=== PATIENT | male | born 1960 | race Caucasian/White ===

== ENCOUNTER 2017-05-06 11:50 | Day surgery (SDC) | payer BC ==
[~2017-05-06 11:50] MED LIST: (None)20 M1 PO; ACET325 PO; ACET500; ACET500 PO; ACETADOTE HHN; ACETYLCYST200 MG/1 M INH; ACYC400; ACYC400 PO; ACYC5TO15G PO; ALBIPROI INH; ALBU.083IS; ALBU3IS; ALBU90I; ALBU90I INH; ALBU90OI; ALEN10 PO; ALEN70 PO; ALLERCLEAR10 MG; ALPR.5 PO; AMBISOME INH; AMYLIPPRO; AMYLIPPRO PO; ASPART; ASPI81EC PO; ATOR10 PO; ATOVAQUONE750 MG/5 M; AZIT100SU; AZIT250 PO; AZIT500; Bactrim 400-801 EACH PO; CALACE667G PO; CALCIT950; CAYSTON75 MG/1 ML; CAYSTON75 MG/1 ML IH; CEFTAZIDIME; CEFTR1PB INH; CEPH500 PO; CHOL10002; CLOT10 SUSW; COLISTIMETHATE150 MG INH; CREON DR 24,001 EACH; CREON DR 24,001 EACH PO; CREON PO; CYAN1000 PO; CYAN500 PO; Citrate Of Mag300 ML PO; Coq-10100 MG; DEXL60CA3; DEXL60CA3 PO; DORN1IH; Duoneb 2.5-0.5 M3 ML IH; ERYT250 PO; Ester-C 500 MG1 EACH; Ester-C 500 MG1 EACH PO; FERR325 PO; FISH1000; FISH1000 PO; FLUSAL2505; FLUSAL2505 IH; FLUT.05NI; FORTAZ IV; FURO20 PO; GUAI600T33 PO; HYDACE5 PO; HYPERTONIC SALINE; Humalog100 UNIT/1; INS70/30I SC; INS70/30PN SC; INSDET100 SQ; INSLI100I; INSLI100I SC; INSN100I; INSUASPI; INSUASPI SC; IRON325 MG; LEVEMIR FL100 UNIT/1; LEVITRA; LEVO750 PO; LISI5 PO; LORA.5; Levitra20 MG PO; MAGOXI400 PO; MAXIPIME; MEROPENEM1000 MG IV; MIRT30 PO; MOMENI; MONT10T; MONT10T PO; MULVITA; MYCO250; MYCO250 PO; Mepron750 MG/5 M PO; Mucinex1200 MG PO; Myfortic360 MG; NASONEX; NEUPOGEN300 MCG/0. IJ; NOVALOG IJ; NOXAFIL100 MG; NOXAFIL100 MG PO; Norco 5-325 Ta1 EACH PO; OMEP20ER; OMEP20ER PO; OMEP40CA12 PO; PARO20; PARO20 PO; PAROEX473 ML SS; POTCHL10ER PO; PRAV20; PRAV20 PO; PRED10 PO; PRED20 PO; PRED5; PRED5 PO; PROGRAF; PROGRAF PO; Prednisone20 MG; Prinivil10 MG PO; QUET25 PO; RAPAMUNE PO; SALMOI6.5; SERAVENT; SULTRIDS; SULTRIDS PO; SULTRISS PO; TACR1 PO; TACROLIMUS5 MG PO; TADA10TA; TOBR.3OPSO INH; TOBRAMYCIN; TOCO400; TOCO400 PO; TRAZ50; TRAZ50 PO; UBID10; UBID100 PO; URSO300 PO; VALGANCICLOVIR; VALGANCICLOVIR450 MG PO; VANC125 INH; VANC250 PO; VANCOCIN INH; VANCOMYCIN 1000 MG; Valcyte450 MG PO; Ventolin5 MG/1 ML IH; [UNRECOGNIZED DRUG - OTHER]; [UNRECOGNIZED DRUG - OTHER]; [UNRECOGNIZED DRUG - OTHER]; [UNRECOGNIZED DRUG - OTHER]; [UNRECOGNIZED DRUG - OTHER] IV; [UNRECOGNIZED DRUG - OTHER] PO
[2018-01-25] MEDS ORDERED: ASCO500 PO (09:29)
== END 2017-05-06 16:47 | disposition home or self-care (01) ==
LOC: ATC 11:50
DX: T82.898A Other specified complication of vascular prosthetic devices, implants and grafts, initial encounter (principal); E10.40 Type 1 diabetes mellitus with diabetic neuropathy, unspecified
CPT/HCPCS: 36593; J2997

== ENCOUNTER 2017-06-09 06:17 | Day surgery (SDC) | payer BC ==
[~2017-06-09] VITALS: Ht 177.8 cm; Wt 70.3 kg
[2017-06-09] MEDS ORDERED: TACR1 (07:00)
[2017-06-09] MEDS ORDERED: ASPI81CH (07:01)
[2017-06-09] MEDS ORDERED: SIRO1 (07:04)
[2017-06-09] MEDS ORDERED: Novolin R100 UNIT/M (07:05)
[2017-06-09] MEDS ORDERED: Flonase 0.05% N16 GM (07:09)
[2018-01-25] MEDS ORDERED: ASCO500 PO (09:29)
== END 2017-06-09 12:46 | disposition home or self-care (01) ==
LOC: ORSCSDS 06:17
PROVIDERS: Otolaryngology
PROC: 8E09XBZ Computer Assisted Procedure of Head and Neck Region (ICD-10-PCS; principal; 2017-06-09 07:30)
PROC: 09BT4ZZ Excision of Left Frontal Sinus, Percutaneous Endoscopic Approach (ICD-10-PCS; principal; 2017-06-09 07:30)
PROC: 09BS4ZZ Excision of Right Frontal Sinus, Percutaneous Endoscopic Approach (ICD-10-PCS; principal; 2017-06-09 07:30)
DX: J32.8 Other chronic sinusitis (principal); E84.9 Cystic fibrosis, unspecified; E11.9 Type 2 diabetes mellitus without complications; N18.9 Chronic kidney disease, unspecified; Z79.4 Long term (current) use of insulin; Z79.82 Long term (current) use of aspirin; Z79.899 Other long term (current) drug therapy
CPT/HCPCS: 82947; 87070; 87077; 87102; 87186; 87205; C2625; J0696; J1100; J1580; J1720; J2250; J2405; J2710; J3010; J3301; J7030

== ENCOUNTER → 2017-06-14 | Outpatient (CLI) | payer BC ==
[~2017-06-14] MED LIST changes: +ASCO500 PO; +ASPI81CH; +Flonase 0.05% N16 GM; +Novolin R100 UNIT/M; +SIRO1; +TACR1
== END | disposition home or self-care (01) ==
LOC: LAB SHORT 13:10 → PLD 13:10
DX: L73.9 Follicular disorder, unspecified (principal); L57.8 Other skin changes due to chronic exposure to nonionizing radiation; R23.4 Changes in skin texture; L83 Acanthosis nigricans; L90.5 Scar conditions and fibrosis of skin
CPT/HCPCS: 88305; 88312

== ENCOUNTER → 2017-09-14 | Outpatient (CLI) | payer BC ==
[~2017-09-14] MED LIST changes: -ASCO500 PO
== END | disposition home or self-care (01) ==
LOC: PLD 07:57 → LAB SHORT 07:57
DX: L57.0 Actinic keratosis (principal)
CPT/HCPCS: 88305

== ENCOUNTER → 2017-11-16 | Outpatient (CLI) | payer BC | LOC: LAB SHORT 11:07 → PLD 11:07 | DX: D04.0 Carcinoma in situ of skin of lip (principal); L57.0 Actinic keratosis | CPT/HCPCS: 88305 ==

== ENCOUNTER → 2018-05-08 | Outpatient (CLI) | payer BC ==
[~2018-05-08] MED LIST changes: +ASCO500 PO; +Aspirin EC81 MG PO; +CALCIUM 500 +1 EAC3 PO; +CLARITIN10 MG PO; +Cartridge Stam1 EACH SC; +Coenzyme Q10100 M1 PO; +Humalog Mi100 UNIT/4 SC; +LOSA25 PO; +NEUPOGEN300 MCG/0.; +Omega 3 Fish O1 EACH PO; +PROM25 PO; -SIRO1; +SIRO1 PO; +VITAMIN D35000 UNIT PO; +ZENPEP DR 20,01 EACH PO
== END ==
LOC: PLD 14:47 → LAB SHORT 14:47
DX: D48.5 Neoplasm of uncertain behavior of skin (principal)
CPT/HCPCS: 88305

== ENCOUNTER 2018-05-09 08:39 | Day surgery (SDC) | payer BC ==
[~2018-05-09] VITALS: Ht 180.3 cm; Wt 70.5 kg
[~2018-05-09 08:39] MED LIST changes: -NEUPOGEN300 MCG/0.
[2018-05-09] MEDS ORDERED: NEUPOGEN300 MCG/0. (09:33)
[2018-05-09] MEDS ORDERED: CREON DR 24,001 EACH (09:36)
--- NOTE | 2018-05-09 12:44 | NUR ---
05/09/18 1244 Ann Humphrey PATIENT AWAKES WITH VERBAL STIMULI. ADMITS TO PAIN /10 AND POINTS TO HIS MID NOSE AREA. VITAL SIGNS ARE STABLE. O2 SATS 96% ON ROOM AIR. HE TAKES OFF THE MUSTACHE DRESSING AND STATES HE DOESN'T WANT THAT ON HIS NOSE. THERE IS A SMALL AMOUNT OF BLEEDING FROM HIS LEFT NOSTRIL THAT I DAB UP AND NO FURTHER PROBLEMS. PATIENT FALLS ASLEEP WHEN NOT BEING SPOKEN TO. WILL ALLOW PATIENT MORE TIME TO WAKE UP BEFORE BRINGING HIS BACK
--- NOTE | 2018-05-09 12:52 | NUR ---
05/09/18 1251 Rupinder Love TOOK REPORT FROM [facility].DFT PT RESTING IN BED, VSS, AT BEDSIDE. PT TOLERATING SMALL SIPS OF WATER. DENIES NAUSEA AND PAIN MEDS FOR 4/10 PAIN. WILL CONT TO MONITOR.
== END 2018-05-09 13:26 | disposition home or self-care (01) ==
LOC: ORSCSDS 08:39
PROVIDERS: Otolaryngology
PROC: 099R8ZZ Drainage of Left Maxillary Sinus, Via Natural or Artificial Opening Endoscopic (ICD-10-PCS; principal; 2018-05-09 09:45)
PROC: 09DR4ZZ Extraction of Left Maxillary Sinus, Percutaneous Endoscopic Approach (ICD-10-PCS; principal; 2018-05-09 09:45)
PROC: 8E09XBZ Computer Assisted Procedure of Head and Neck Region (ICD-10-PCS; principal; 2018-05-09 09:45)
DX: J32.1 Chronic frontal sinusitis (principal); E84.9 Cystic fibrosis, unspecified; E11.22 Type 2 diabetes mellitus with diabetic chronic kidney disease; I12.9 Hypertensive chronic kidney disease with stage 1 through stage 4 chronic kidney disease, or unspecified chronic kidney disease; N18.4 Chronic kidney disease, stage 4 (severe); Z79.4 Long term (current) use of insulin; Z79.899 Other long term (current) drug therapy
CPT/HCPCS: 82947; 87070; 87077; 87186; 87205; C2625; J1100; J1580; J1720; J2250; J2405; J3010; J3301; J7120

== ENCOUNTER → 2018-09-16 | Outpatient (CLI) | payer BC ==
[~2018-09-16] MED LIST changes: +CRESEMBA186 MG; +NEUPOGEN300 MCG/0.
== END ==
LOC: LAB SRC 10:00 → LAB SHORT 10:00 → LAB FUT 09-18 07:45
DX: T86.819 Unspecified complication of lung transplant (principal); E84.9 Cystic fibrosis, unspecified
CPT/HCPCS: 87070; 87077; 87147; 87186; 87205

== ENCOUNTER 2019-01-23 07:21 | Day surgery (SDC) | payer BC ==
[~2019-01-23] VITALS: Ht 177.8 cm; Wt 67.2 kg
[~2019-01-23 07:21] MED LIST changes: -CRESEMBA186 MG
--- NOTE | 2019-01-23 07:56 | NUR ---
01/23/19 0756 Birgit Smith 0752 CHLORHEXADINE ORAL RINSE WAS DONE BY THE PT PER DR. NIEVES YIN.
[2019-01-23] MEDS ORDERED: CRESEMBA186 MG ×2 (08:01→08:02)
--- NOTE | 2019-01-23 11:22 | NUR ---
01/23/19 1122 Silvia Garibay Ariel REMAINS ASLEEP, WAKENS TO WIFES VOICE. STATES HAS HEADACHE. MED C FENTANYL 25 MCG IV X 2 C/O HEADACHE, VSS. RETURNED TO WORK
== END 2019-01-23 15:00 | disposition home or self-care (01) ==
LOC: ORSCSDS 07:21
PROVIDERS: Otolaryngology
PROC: 09CX4ZZ Extirpation of Matter from Left Sphenoid Sinus, Percutaneous Endoscopic Approach (ICD-10-PCS; principal; 2019-01-23 08:45)
PROC: 09BS4ZZ Excision of Right Frontal Sinus, Percutaneous Endoscopic Approach (ICD-10-PCS; principal; 2019-01-23 08:45)
PROC: 09CW4ZZ Extirpation of Matter from Right Sphenoid Sinus, Percutaneous Endoscopic Approach (ICD-10-PCS; principal; 2019-01-23 08:45)
PROC: 09BT4ZZ Excision of Left Frontal Sinus, Percutaneous Endoscopic Approach (ICD-10-PCS; principal; 2019-01-23 08:45)
PROC: 8E09XBZ Computer Assisted Procedure of Head and Neck Region (ICD-10-PCS; principal; 2019-01-23 08:45)
DX: J32.1 Chronic frontal sinusitis (principal); J32.8 Other chronic sinusitis; E84.9 Cystic fibrosis, unspecified; I10 Essential (primary) hypertension; E11.42 Type 2 diabetes mellitus with diabetic polyneuropathy; Z79.4 Long term (current) use of insulin; Z79.899 Other long term (current) drug therapy
CPT/HCPCS: 82947; 87070; 87075; 87077; 87106; 87186; 87205; C2625; J1100; J1580; J1720; J1940; J2250; J2370; J2405; J2704; J3010; J3301; J7120

== ENCOUNTER 2019-06-20 19:11 | Inpatient (IN) | payer BC ==
[~2019-06-20] VITALS: Ht 180.3 cm; Wt 68.6 kg
[~2019-06-20 19:11] MED LIST changes: -ASCO500 PO; -Aspirin EC81 MG PO; -CALCIUM 500 +1 EAC3 PO; -CLARITIN10 MG PO; -COLISTIMETHATE150 MG INH; +CRESEMBA186 MG; -Coenzyme Q10100 M1 PO; -DEXL60CA3; -FISH1000 PO; -Flonase 0.05% N16 GM; -Humalog100 UNIT/1; -IRON325 MG; -LOSA25 PO; -Mepron750 MG/5 M PO; -NEUPOGEN300 MCG/0.; -OMEP40CA12 PO; -Omega 3 Fish O1 EACH PO; -PRAV20 PO; -SIRO1 PO; -TACR1; -URSO300 PO; -VITAMIN D35000 UNIT PO; -ZENPEP DR 20,01 EACH PO
[2019-06-20 19:56] LABS: BASOPHILS ABSOLUTE AUTO 0.02 K/mm3 (0.00-0.23); BASOPHILS PERCENT AUTO 0 % (0-2); EOSINOPHILS ABSOLUTE AUTO 0.01 K/mm3 (0.00-0.68); EOSINOPHILS PERCENT AUTO 0 % (0-6); Hematocrit 33.2 % (37.0-53.0); Hemoglobin 11.1 g/dL (13.5-17.5); IMMATURE GRAN ABSOLUTE AUTO 0.68 K/mm3 (0.00-0.10); IMMATURE GRAN PERCENT AUTO 4 % (0-1); LYMPHOCYTES ABSOLUTE AUTO 0.77 K/mm3 (0.84-5.20); LYMPHOCYTES PERCENT AUTO 5 % (21-46); MONOCYTES ABSOLUTE AUTO 0.27 K/mm3 (0.16-1.47); MONOCYTES PERCENT AUTO 2 % (4-13); Mean Corpuscular HGB Conc 33.4 g/dL (31.5-36.5); Mean Corpuscular Volume 105 fL (80-100); Mean Platelet Volume 11.9 fL (9.1-12.4); NEUTROPHILS ABSOLUTE AUTO 15.43 K/mm3 (1.96-9.15); NEUTROPHILS PERCENT AUTO 90 % (41-73); RDW Coefficient Variation 15.3 % (11.7-14.2); RDW Standard Deviation 58.9 fL (35.1-46.3); Red Blood Cell Count 3.17 M/mm3 (4.30-5.90); White Blood Cell Count 17.18 K/mm3 (4.00-11.30)
[2019-06-20 20:00] LABS: Platelet Count 42 K/mm3 (150-400)
[2019-06-20 20:09] LABS: Alanine Aminotransfer (ALT/SGP 26 U/L (12-78); Albumin, Blood 3.5 g/dL (3.4-5.0); Albumin/Globulin Ratio 1.2 (0.8-1.8); Alk Phos 127 U/L (50-136); Anion Gap 9 mmol/L (6-16); Aspartate Aminotrans (AST/SGOT 17 U/L (12-37); Bilirubin, Total 0.3 mg/dL (0.1-1.0); Blood Urea Nitrogen 62 mg/dL (8-24); CO2, Blood 14 mmol/L (21-32); Chloride, Blood 116 mmol/L (98-108); Globulin, Blood 2.8 g/dL (2.2-4.0); Glomerular Filtration Rate 22 (60-); Glucose, Blood 281 mg/dL (70-99); Potassium, Blood 4.9 mmol/L (3.5-5.5); Sodium, Blood 139 mmol/L (136-145); Total Protein, Blood 6.3 g/dL (6.4-8.2); Troponin I <0.015 ng/mL (0.000-0.040)
[2019-06-20] MEDS ORDERED: DEXL60CA3 PO ×2 (20:30)
[2019-06-20] MEDS ORDERED: COLISTIMETHATE150 MG NEB ×2 (20:31)
[2019-06-20] MEDS ORDERED: PRAV20 PO ×2 (20:33)
[2019-06-20] MEDS ORDERED: TACR1 PO ×2 (20:36)
[2019-06-20] MEDS ORDERED: OMEP20ER PO ×2 (20:38)
[2019-06-20] MEDS ORDERED: Humalog100 UNIT/1 SC ×2 (20:39)
[2019-06-20] MEDS ORDERED: PRED5 PO ×2 (20:39)
[2019-06-20] MEDS ORDERED: Fergon240 M1 PO ×2 (21:49)
[2019-06-20] MEDS ORDERED: VITAMIN E400 UNI1 PO ×2 (21:50)
[2019-06-20] MEDS ORDERED: Mepron750 MG/5 M PO ×2 (21:51)
[2019-06-20] MEDS ORDERED: ACYC400 PO ×2 (21:52)
[2019-06-20] MEDS ORDERED: AZIT250 PO ×2 (21:52)
[2019-06-20] MEDS ORDERED: CAYSTON75 MG/1 ML NEB (21:55)
[2019-06-20] MEDS ORDERED: URSO300 PO ×2 (21:55)
[2019-06-20] MEDS ORDERED: Fish Oil 10001000 MG PO ×2 (21:56)
[2019-06-20] MEDS ORDERED: SIROLIMUS0.5 MG PO ×2 (21:57)
[2019-06-20] MEDS ORDERED: TACROLIMUS0.5 MG PO (21:57)
[2019-06-20 21:58] LABS: Source, Urine Clean Catch
[2019-06-20] MEDS ORDERED: ASCO500 PO (21:58)
[2019-06-20] MEDS ORDERED: Flonase 0.05% N16 GM ×2 (21:58)
[2019-06-20 22:00] LABS: Bilirubin, Urine Neg (Neg); Blood, Urine 2+ (Neg); Glucose Qualitative, Urine 4+ (Neg); Ketones, Urine Neg (Neg); Leukocyte Esterase, Urine Neg (Neg); Nitrite, Urine Neg (Neg); Protein, Urine 2+ (Neg); Specific Gravity, Urine 1.015 (1.003-1.022); Urobilinogen, Urine NORM (Normal)
[2019-06-20] MEDS ORDERED: Levitra20 MG PO ×2 (22:00)
[2019-06-20] MEDS ORDERED: Coenzyme Q10100 M1 PO ×2 (22:01)
[2019-06-20] MEDS ORDERED: Aspirin EC81 MG PO (22:01)
[2019-06-20] MEDS ORDERED: VITAMIN D3125 MCG PO ×2 (22:02)
[2019-06-20] MEDS ORDERED: CREON DR 24,001 EACH PO ×2 (22:05)
[2019-06-20 22:06] LABS: Adenovirus Not Detected (NOT DETECT); Bordetella pertussis Not Detected (NOT DETECT); Chlamydophila pneumoniae Not Detected (NOT DETECT); Coronavirus 229E Not Detected (NOT DETECT); Coronavirus HKU1 Not Detected (NOT DETECT); Coronavirus NL63 Not Detected (NOT DETECT); Coronavirus OC43 Not Detected (NOT DETECT); Human Metapneumovirus Not Detected (NOT DETECT); Human Rhinovirus/Enterovirus Not Detected (NOT DETECT); Influenza A/2009-H1 Not Detected (NOT DETECT); Influenza A/H1 Not Detected (NOT DETECT); Influenza A/H3 Not Detected (NOT DETECT); Influenza B Not Detected (NOT DETECT); Mycoplasma pneumoniae Not Detected (NOT DETECT); Parainfluenza Virus 1 Not Detected (NOT DETECT); Parainfluenza Virus 2 Not Detected (NOT DETECT); Parainfluenza Virus 3 Not Detected (NOT DETECT); Parainfluenza Virus 4 Not Detected (NOT DETECT); Respiratory Syncytial Virus Not Detected (NOT DETECT)
[2019-06-20 22:07] LABS: Appearance, Urine Clear (Clear); Color, Urine Yellow (P-Yellow)
[2019-06-20] MEDS ORDERED: CLARITIN10 MG PO ×2 (22:07)
[2019-06-20] MEDS ORDERED: POTCHL10ER PO ×2 (22:08)
[2019-06-20 22:09] LABS: Amorphous Light (0-Heavy); Bacteria Not Seen /hpf; Red Blood Cells, Urine Rare /hpf (0-2); Squamous Epithelial Cells Not Seen /hpf (Few); White Blood Cells, Urine Rare /hpf (0-5)
[2019-06-20] MEDS ORDERED: LOSA25 PO ×2 (22:09)
[2019-06-20] MEDS ORDERED: NEUPOGEN300 MCG/0. SC (22:11)
[2019-06-20] MEDS ORDERED: CRESEMBA186 MG PO ×2 (22:13)
[2019-06-20] MEDS ORDERED: CALCIUM CITRAT1 EAC4 PO ×2 (22:16)
[2019-06-20] MEDS ORDERED: MEGESTROL625 MG/5 M PO ×2 (22:17)
[2019-06-20] MEDS ORDERED: BUDE.25 ×2 (22:32)
[2019-06-20] MEDS ORDERED: Lomotil Tablet1 EACH PO ×2 (22:36)
[2019-06-20] MEDS ORDERED: FURO20 PO ×2 (22:37)
[2019-06-20] MEDS ORDERED: METO10SY PO ×2 (22:37)
[2019-06-20] MEDS ORDERED: THERA1 EACH PO ×2 (22:38)
[2019-06-20] MEDS ORDERED: PAROXETINE7.5 MG PO ×2 (22:41)
[2019-06-20] MEDS ORDERED: Ceftriaxone250 MG NEB ×2 (22:43)
[2019-06-20] MEDS ORDERED: Mupirocin22 GM TOP ×2 (22:44)
[2019-06-20] MEDS ORDERED: [UNRECOGNIZED DRUG - OTHER] NEB (22:47)
[2019-06-20] MEDS ORDERED: RAPAMUNE PO (23:39)
[2019-06-21 05:06] LABS: Bun/Creatinine Ratio 19.9 (12.0-20.0); Calcium, Blood 7.8 mg/dL (8.5-10.1); Creatinine, Blood 3.07 mg/dL (0.60-1.20); Potassium, Blood 4.9 mmol/L (3.5-5.5)
--- NOTE | 2019-06-21 05:14 | NUR ---
SHIFT SUMMARY PT WAS NEW ER ADMIT THIS SHIFT, (0005), HAS BEEN A&O W/SOME CONFUSION, NO ACUTE CHANGES SINCE ASSUMING CARE, NO C/O ANY KIND, PT SLEEPING AT THIS TIME, CALL LIGHT IN REACH, BED ALARM ACTIVE, WILL CONT TO MONITOR UNTIL REPORT GIVEN TO DAY RN.
[2019-06-21 05:16] LABS: BASOPHILS PERCENT AUTO 0 % (0-2); EOSINOPHILS ABSOLUTE AUTO 0.03 K/mm3 (0.00-0.68); EOSINOPHILS PERCENT AUTO 0 % (0-6); Hematocrit 30.9 % (37.0-53.0); Hemoglobin 10.1 g/dL (13.5-17.5); IMMATURE GRAN ABSOLUTE AUTO 0.05 K/mm3 (0.00-0.10); IMMATURE GRAN PERCENT AUTO 1 % (0-1); LYMPHOCYTES ABSOLUTE AUTO 0.77 K/mm3 (0.84-5.20); LYMPHOCYTES PERCENT AUTO 9 % (21-46); MONOCYTES PERCENT AUTO 2 % (4-13); Mean Corpuscular HGB 34.6 pg (26.0-34.0); Mean Corpuscular HGB Conc 32.7 g/dL (31.5-36.5); Mean Corpuscular Volume 106 fL (80-100); Mean Platelet Volume 11.4 fL (9.1-12.4); NEUTROPHILS PERCENT AUTO 88 % (41-73); RDW Coefficient Variation 15.2 % (11.7-14.2); RDW Standard Deviation 59.7 fL (35.1-46.3); Red Blood Cell Count 2.92 M/mm3 (4.30-5.90); White Blood Cell Count 8.65 K/mm3 (4.00-11.30)
[2019-06-21 05:34] LABS: Platelet Count 39 K/mm3 (150-400)
[2019-06-21] MEDS ORDERED: [UNRECOGNIZED DRUG - OTHER] ×2 (11:42)
[2019-06-21] MEDS ORDERED: [UNRECOGNIZED DRUG - SUPPLY] ×2 (11:43)
--- NOTE | 2019-06-21 19:26 | NUR ---
alert orintated to self, confused at time, call light in reach, family in rm assisting, many medications for complex case, bed in low position, saline locked bsr shared with noc nurse
--- NOTE | 2019-06-22 05:32 | NUR ---
SHIFT SUMMARY PT HAS HAD NO ACUTE CHANGES THIS SHIFT, HAS BEEN A&O TO SITUATION, COOPERATIVE AND PLEASANT W/CARE, GAIT IS STEADY, IV SL, PT HAS BEEN INDEP TO BR, CALL LIGHT IN REACH, WILL CONT TO MONITOR UNTIL REPORT GIVEN TO DAY RN.
--- NOTE | 2019-06-22 10:37 | NUR ---
ECHOCARDIOGRAM COMPLETE
--- NOTE | 2019-06-22 20:05 | NUR ---
SHIFT SUMMARY PT RESTING QUIETLY AT START OF SHIFT, BUT WAKES EASILY FOR CARE. PT ADMITTED FOR POSSIBLE STROKE. PER SHIFT REPORT, PT HAD R DEFICITS YESTERDAY, BUT HAVE RESOLVED. CT SHOWING L FRONTAL LOBE STROKE. PT WITH COMPLICATED MEDICAL HX; CF WITH 2 LUNG TX'S. PT ON MULTIPLE MEDICATIONS, SOME USING HOME NEB TX'S. THERE WAS SOME CONFUSION ON ADMINISTRATION THRU OUT THE DAY. PHARMACY, RT, CHRG RN, AND NURSING PROCUREMENT PROFESSIONAL ENVOLVED. TALKED WITH PT'S REGARDING HOME MEDS. PT'S EVENTUALLY ABLE TO COME IN AND PROVIDE EDUCATION R/T PT'S HOME ADMINISTRATION. SOME HOME MEDS GIVEN LATE. PT HAVING DIFFICULTY WITH EXPRESSIVE APHAGIA. BECOMES FRUSTRATED WHEN HE CAN'T COMMUNICATE SOME WORDS AND CAN'T REMEMBER SOME PROCESSES. PER PT'S , PT WAS MANAGING HIS NEB TX'S AT HOME WELL HIS INSULIN PUMP. TODAY PT WAS UNCLEAR WHAT TO DO AND WOULD BECOME FRUSTRATED AND WANT TO JUST BRUSH IT OFF. UPDATED PT'S . NO C/O. DENIED NEEDS WHEN ASKED. CALL LT IN REACH.
--- NOTE | 2019-06-23 03:46 | NUR ---
SUMMARY PT RECIEVED HOME NEB TX'S FROM DAY RN AND . PT CBG AND INSULIN MANAGED VIA INSULIN PUMP. PT ASKED ABOUT A POSSIBLE MED TO RELAX PT BUT STATED SHE DOES NOT WANT ATIVAN TO BE USED. PT HAS REMAINED CALM AND AGREEABLE THIS SHIFT. PT HAS SLEPT W/OUT ISSUE T/O SHIFT. PT CURRENTLY SLEEPING AND BREATHING EASY. CALL LIGHT IN REACH AND BED ALARM ON FOR SAFETY.
[2019-06-23 05:20] LABS: BASOPHILS PERCENT AUTO 0 % (0-2); EOSINOPHILS ABSOLUTE AUTO 0.03 K/mm3 (0.00-0.68); EOSINOPHILS PERCENT AUTO 2 % (0-6); Hematocrit 29.9 % (37.0-53.0); Hemoglobin 9.7 g/dL (13.5-17.5); IMMATURE GRAN ABSOLUTE AUTO 0.02 K/mm3 (0.00-0.10); IMMATURE GRAN PERCENT AUTO 1 % (0-1); LYMPHOCYTES ABSOLUTE AUTO 0.53 K/mm3 (0.84-5.20); LYMPHOCYTES PERCENT AUTO 27 % (21-46); MONOCYTES ABSOLUTE AUTO 0.12 K/mm3 (0.16-1.47); MONOCYTES PERCENT AUTO 6 % (4-13); Mean Corpuscular HGB 34.5 pg (26.0-34.0); Mean Corpuscular HGB Conc 32.4 g/dL (31.5-36.5); Mean Corpuscular Volume 106 fL (80-100); Mean Platelet Volume 11.6 fL (9.1-12.4); NEUTROPHILS ABSOLUTE AUTO 1.28 K/mm3 (1.96-9.15); NEUTROPHILS PERCENT AUTO 65 % (41-73); RDW Coefficient Variation 14.8 % (11.7-14.2); RDW Standard Deviation 58.8 fL (35.1-46.3); Red Blood Cell Count 2.81 M/mm3 (4.30-5.90); White Blood Cell Count 1.98 K/mm3 (4.00-11.30)
[2019-06-23 05:33] LABS: Platelet Count 38 K/mm3 (150-400)
[2019-06-23 05:43] LABS: Albumin, Blood 2.9 g/dL (3.4-5.0); Anion Gap 9 mmol/L (6-16); Blood Urea Nitrogen 60 mg/dL (8-24); Bun/Creatinine Ratio 18.3 (12.0-20.0); CO2, Blood 15 mmol/L (21-32); Calcium, Blood 8.1 mg/dL (8.5-10.1); Chloride, Blood 124 mmol/L (98-108); Cholesterol 92 mg/dL (50-200); Creatinine, Blood 3.27 mg/dL (0.60-1.20); Glomerular Filtration Rate 21 (60-); Glucose, Blood 131 mg/dL (70-99); HDL Cholesterol 45 mg/dL (>39); Phosphorus, Blood 4.3 mg/dL (2.5-4.9); Potassium, Blood 4.8 mmol/L (3.5-5.5); Sodium, Blood 148 mmol/L (136-145)
[2019-06-23 05:44] LABS: LDL/HDL RATIO 0.6; Low Density Lipoprotein Chol 29 mg/dL (0-110); Triglycerides 92 mg/dL (30-160); Very Low Density Lipoprot Chol 18 mg/dL (6-32)
--- NOTE | 2019-06-23 16:36 | NUR ---
SHIFT SUMMARY PT UP OOB AND TO BTHRM AT START OF SHIFT, SETTING BED ALARM OFF. PT HAS BEEN MOSTLY INDEPENDENT IN RM, JUST IMPULSIVE. PT CO-OP WITH TAKING PO MEDS THIS AM. PT'S ASSISTED WITH HOME NEBULIZER MEDICATIONS, BUT PT IMMEDIATELY BECOMING IMPATIENT AND VERY AGITATED AT HIS . PT IS FORGETFUL AND DOESN'T REMEMBER HOW TO USE HIS NEBULIZER SYSTEMS AND NEEDS CUEING TO GET THEM TURNED ON. PT BECOMES AGITATED WITH ANYONE GIVING HIM INSTRUCTIONS OR HAVING TO REMIND HIM OF WHAT NEEDS DONE, ESPECIALLY HIS . PT THREW HIS NEB SYSTEM INTO SINK AND BROKE IT LAST NIGHT AND THEN THREW IT INTO TRASH CAN FOR THIS MORNINGS TX. PT REFUSED HIS AFTERNOON TX AND REPORTED THAT HE ONLY DOES THAT "ONCE A DAY OR LESS THAN THAT". PT'S LEFT TEARFUL TODAY. PT NEEDING TO BE D/C'D TO SNF OR FIND PLACEMENT AT D/C, IS UNABLE TO CARE FOR HIM IN THIS SITUATION. PT IS FULLY AWARE OF SOMETHINGS, BUT VERY CONFUSED ABOUT OTHER THINGS. PT ALSO CONTINUES TO HAVE DIFFICULTY FINDING WORDS TO SAY WHAT HE MEANS. DENIES FURTHER NEEDS AT THIS TIME. CALL LT IN REACH.
--- NOTE | 2019-06-24 05:18 | NUR ---
SHIFT SUMMARY PT WAS AGITATED AND IRRITATBLE AT BEGINNING OF SHIFT. PT REQUESTED TO LEAVE. PROVIDER DAVID SPOKE W/ PT AT LENGTH AND PT AGREED TO STAY. PT REMAINS CONFUSED AT TIMES AND GETS EASILY FRUSTRATED. PT TOOK HIS PO MEDS AND AGREED TO REMOVE HIS INSULIN PUMP. PT DID REFUSE TO TO TAKE HOME MED NEB TX'S. PT HAS SLEPT T/O SHIFT. PT CURRENTLY SLEEPING AND IN NO DISTRESS. CALL LIGHT IN REACH.
[2019-06-24 05:47] LABS: BASOPHILS PERCENT AUTO 0 % (0-2); EOSINOPHILS ABSOLUTE AUTO 0.02 K/mm3 (0.00-0.68); EOSINOPHILS PERCENT AUTO 2 % (0-6); Hematocrit 28.9 % (37.0-53.0); Hemoglobin 9.6 g/dL (13.5-17.5); IMMATURE GRAN PERCENT AUTO 0 % (0-1); LYMPHOCYTES ABSOLUTE AUTO 0.51 K/mm3 (0.84-5.20); LYMPHOCYTES PERCENT AUTO 39 % (21-46); MONOCYTES ABSOLUTE AUTO 0.07 K/mm3 (0.16-1.47); MONOCYTES PERCENT AUTO 5 % (4-13); Mean Corpuscular HGB Conc 33.2 g/dL (31.5-36.5); Mean Corpuscular Volume 106 fL (80-100); Mean Platelet Volume 11.9 fL (9.1-12.4); NEUTROPHILS ABSOLUTE AUTO 0.71 K/mm3 (1.96-9.15); NEUTROPHILS PERCENT AUTO 54 % (41-73); RDW Coefficient Variation 14.6 % (11.7-14.2); RDW Standard Deviation 57.4 fL (35.1-46.3); Red Blood Cell Count 2.74 M/mm3 (4.30-5.90); White Blood Cell Count 1.31 K/mm3 (4.00-11.30)
[2019-06-24 05:56] LABS: Platelet Count 39 K/mm3 (150-400)
[2019-06-24 06:02] LABS: Anion Gap 11 mmol/L (6-16); Blood Urea Nitrogen 56 mg/dL (8-24); Bun/Creatinine Ratio 17.3 (12.0-20.0); CO2, Blood 15 mmol/L (21-32); Chloride, Blood 120 mmol/L (98-108); Creatinine, Blood 3.23 mg/dL (0.60-1.20); Glomerular Filtration Rate 21 (60-); Glucose, Blood 178 mg/dL (70-99); Phosphorus, Blood 4.3 mg/dL (2.5-4.9); Potassium, Blood 4.7 mmol/L (3.5-5.5); Sodium, Blood 146 mmol/L (136-145)
--- NOTE | 2019-06-24 17:24 | NUR ---
SUMMARY PT RESTING QUIETLY IN BED, HAS BEEN INDEPENDENT IN THE ROOM, IS COOPERATIVE WITH MOST CARE, TAKES HIS NEBULIZERS WHEN HE WANTS TO RATHER THAN WHEN THEY ARE SCHEDULED, HAS WORKED WITH PT/OT/ST TODAY, SPOUSE CALLED FREQUENTLY ON THE PHONE, PT DID NOT WANT TO BE BOTHERED AND DID NOT TAKE ANY PHONE CALLS TODAY, PT WITH EXPRESSIVE APHASIA, GETS FRUSTRATED EASILY, NO ACUTE CHANGES, WILL CONTINUE TO MONITOR
--- NOTE | 2019-06-25 04:35 | NUR ---
SHIFT SUMMARY- PT. A&O, PLEASANT AND COOPERATIVE WITH CARE. HAS BEEN INDEPENDENT IN ROOM. PT. APPEARED TO HAVE SLEPT COMFORTABLY DURING THE NIGHT. NO APPARENT DISTRESS NOTED. DENIED ANY C/O PAIN OR DISCOMFORT T/O THE SHIFT. NO ACUTE CHANGES TO CONDITION. CALL LIGHT WITHIN REACH AND SIDE RAILS UP X2. WILL CONT TO MONITOR.
[2019-06-25 05:10] LABS: BASOPHILS ABSOLUTE AUTO 0.02 K/mm3 (0.00-0.23); BASOPHILS PERCENT AUTO 0 % (0-2); EOSINOPHILS ABSOLUTE AUTO 0.04 K/mm3 (0.00-0.68); EOSINOPHILS PERCENT AUTO 1 % (0-6); Hematocrit 29.6 % (37.0-53.0); Hemoglobin 9.7 g/dL (13.5-17.5); IMMATURE GRAN ABSOLUTE AUTO 0.08 K/mm3 (0.00-0.10); IMMATURE GRAN PERCENT AUTO 1 % (0-1); LYMPHOCYTES ABSOLUTE AUTO 0.84 K/mm3 (0.84-5.20); LYMPHOCYTES PERCENT AUTO 10 % (21-46); MONOCYTES ABSOLUTE AUTO 0.21 K/mm3 (0.16-1.47); MONOCYTES PERCENT AUTO 3 % (4-13); Mean Corpuscular HGB 34.2 pg (26.0-34.0); Mean Corpuscular HGB Conc 32.8 g/dL (31.5-36.5); Mean Corpuscular Volume 104 fL (80-100); Mean Platelet Volume 12.5 fL (9.1-12.4); NEUTROPHILS ABSOLUTE AUTO 7.28 K/mm3 (1.96-9.15); NEUTROPHILS PERCENT AUTO 86 % (41-73); RDW Coefficient Variation 14.5 % (11.7-14.2); RDW Standard Deviation 56.1 fL (35.1-46.3); Red Blood Cell Count 2.84 M/mm3 (4.30-5.90); White Blood Cell Count 8.47 K/mm3 (4.00-11.30)
[2019-06-25 05:17] LABS: Platelet Count 35 K/mm3 (150-400)
[2019-06-25 05:26] LABS: Albumin, Blood 3.1 g/dL (3.4-5.0); Anion Gap 9 mmol/L (6-16); Blood Urea Nitrogen 56 mg/dL (8-24); Bun/Creatinine Ratio 17.3 (12.0-20.0); CO2, Blood 16 mmol/L (21-32); Chloride, Blood 119 mmol/L (98-108); Creatinine, Blood 3.24 mg/dL (0.60-1.20); Glomerular Filtration Rate 21 (60-); Glucose, Blood 218 mg/dL (70-99); Phosphorus, Blood 3.5 mg/dL (2.5-4.9); Potassium, Blood 4.7 mmol/L (3.5-5.5); Sodium, Blood 144 mmol/L (136-145)
--- NOTE | 2019-06-25 17:19 | NUR ---
SUMMARY PT RESTING IN BED, WAKES EASILY, SPOUSE IS AT THE BEDSIDE, PT HAS BEEN INDEPENDENT IN THE ROOM, PT CONT TO HAVE EXPRESSIVE APHASIA, EASILY FRUSTRATED, HAS BEEN MOSTLY PLEASANT AND COOPERATIVE WITH CARE, EASILY DISTRACTED, WORKED WITH OT TODAY, DISCHARGE PLANNING WORKING ON SAFE DISCHARGE, VSS, WILL CONTINUE TO MONITOR
--- NOTE | 2019-06-26 03:54 | NUR ---
SHIFT SUMMARY PT HAS RESTED ALL NIGHT AND HAS DENIED NEEDS. HE HAS BEEN AMBULATORY IN THE ROOM. RESP E/U ON RA. A/OX4, OCCASIONALLY FORGETFUL. PT REFUSED NASAL MEDICATIONS THIS SHIFT, BUT TOOK ALL OF HIS ORAL MEDS. NO ACUTE CHANGES IN NEURO ASSESSMENT. VITALS STABLE. BED IN LOWEST POSITION, CALL LIGHT WITHIN REACH. WILL CONTINUE TO MONITOR AND REPORT TO ONCOMING RN.
--- NOTE | 2019-06-26 07:28 | NUR ---
ASSUMED CARE: PT RESTING QUIETLY AT THIS TIME. NO ACUTE NEEDS OR CONCERNS.
--- NOTE | 2019-06-26 12:19 | NUR ---
PT'S CALLED STAFF TO ROOM BECAUSE PT FELT LIKE BLOOD SUGAR WAS LOW AND HE WAS DIAPHORETIC AND LETHARGIC. NURSE ENTERED ROOM, CBG 40. JUICE PROVIDED, AT BEDSIDE FEEDING LUNCH. WILL RECHECK SUGAR AND HOLD OFF ON LUNCH INSULIN.
[2019-06-26] MEDS ORDERED: Cyproheptadine H4 MG PO ×4 (13:50)
[2019-06-26] MEDS ORDERED: C Complex1000 MG PO ×2 (13:51)
[2019-06-26] MEDS ORDERED: Aspir 8181 MG PO ×2 (13:51)
[2019-06-26] MEDS ORDERED: BASAGLAR K100 UNIT/1 SC ×2 (13:51)
[2019-06-26] MEDS ORDERED: HUMALOG KW200 UNIT/1 SC ×2 (13:52)
[2019-06-26] MEDS ORDERED: PARO10 PO ×2 (13:52)
[2019-06-26] MEDS ORDERED: FILG480I SC ×2 (13:53)
--- NOTE | 2019-06-26 14:10 | NUR ---
RECHECKED CBG. PLAN IS TO HOLD LUNCH INSULIN AND RECHECK AT DINNER TIME PER DISCUSSION WITH PT'S .
--- NOTE | 2019-06-26 16:49 | NUR ---
PT DC'D HOME. INSTRUCTIONS GIVEN TO PT AND HIS REGARDING FOLLOW UP APPOINTMENTS AND MEDICATIONS. MESSAGE LEFT FOR DR MORALEZ TO CALL PT'S REGARDING ASA AND VITAMIN C ORDERS. PT'S REQUESTED WE CALL [facility] [place] BUT NO ANSWER AND UNABLE TO LEAVE MESSAGE WHEN ATTEMPTED. AWARE. ESCORTED OUT VIA WHEEL CHAIR. NO FURTHER NEEDS OR CONCERNS.
== END 2019-06-26 16:45 | disposition home health service (06) | DRG 64 ==
LOC: ER 19:11 → MEDS 19:12 → ER 23:31 → MEDS 23:31 → ENPENDDIS 06-26 13:11 → MEDS 06-26 16:45
PROVIDERS: Emergency Medicine; Internal Medicine; Physician Assistant; ADMIT Internal Medicine
DX: I63.9 Cerebral infarction, unspecified (principal); G92 Toxic encephalopathy; G93.49 Other encephalopathy; Z94.2 Lung transplant status; N18.4 Chronic kidney disease, stage 4 (severe); E84.9 Cystic fibrosis, unspecified; E87.1 Hypo-osmolality and hyponatremia; R47.01 Aphasia; E11.65 Type 2 diabetes mellitus with hyperglycemia; E78.5 Hyperlipidemia, unspecified; D69.6 Thrombocytopenia, unspecified; I12.9 Hypertensive chronic kidney disease with stage 1 through stage 4 chronic kidney disease, or unspecified chronic kidney disease; E11.22 Type 2 diabetes mellitus with diabetic chronic kidney disease; R41.3 Other amnesia; D70.9 Neutropenia, unspecified; J32.9 Chronic sinusitis, unspecified; Z86.73 Personal history of transient ischemic attack (TIA), and cerebral infarction without residual deficits; Z92.25 Personal history of immunosuppression therapy; Z96.41 Presence of insulin pump (external) (internal); K21.9 Gastro-esophageal reflux disease without esophagitis; E86.0 Dehydration; D63.8 Anemia in other chronic diseases classified elsewhere
CPT/HCPCS: 0099U; 36415; 70450; 70551; 71045; 71250; 80048; 80053; 80061; 80069; 80195; 80197; 81001; 82947; 83036; 83605; 84145; 84484; 85025; 87040; 90686; 92507; 92523; 92610; 93306; 93880; 94640; 94760; 96365; 96366; 96372; 96376; 97161; 97165; 97535; 99285-25; A9270-GY; G0378; J0696; J0770; J1447; J1644; J1815; J2543; J7030; J7512; J7520; U0002

== ENCOUNTER → 2019-07-01 | Outpatient (CLI) | payer BC ==
[~2019-07-01] MED LIST changes: +ASCO500 PO; +Aspir 8181 MG PO; +Aspirin EC81 MG PO; +BASAGLAR K100 UNIT/1 SC; +BUDE.25; +C Complex1000 MG PO; +CALCIUM CITRAT1 EAC4 PO; +CAYSTON75 MG/1 ML NEB; +CLARITIN10 MG PO; +COLISTIMETHATE150 MG NEB; +CRESEMBA186 MG PO; +Ceftriaxone250 MG NEB; +Coenzyme Q10100 M1 PO; +Cyproheptadine H4 MG PO; +FILG480I SC; +Fergon240 M1 PO; +Fish Oil 10001000 MG PO; +Flonase 0.05% N16 GM; +HUMALOG KW200 UNIT/1 SC; +Humalog100 UNIT/1 SC; +LOSA25 PO; +Lomotil Tablet1 EACH PO; +MEGESTROL625 MG/5 M PO; +METO10SY PO; +Mepron750 MG/5 M PO; +Mupirocin22 GM TOP; +NEUPOGEN300 MCG/0. SC; +PARO10 PO; +PAROXETINE7.5 MG PO; +PRAV20 PO; +SIROLIMUS0.5 MG PO; +TACROLIMUS0.5 MG PO; +THERA1 EACH PO; +URSO300 PO; +VITAMIN D3125 MCG PO; +VITAMIN E400 UNI1 PO; +[UNRECOGNIZED DRUG - OTHER]; +[UNRECOGNIZED DRUG - OTHER] NEB; +[UNRECOGNIZED DRUG - SUPPLY]
[2019-07-01 11:47] LABS: Hematocrit 29.9 % (37.0-53.0); Hemoglobin 9.8 g/dL (13.5-17.5); Mean Corpuscular HGB 34.3 pg (26.0-34.0); Mean Corpuscular HGB Conc 32.8 g/dL (31.5-36.5); Mean Corpuscular Volume 105 fL (80-100); Mean Platelet Volume 12.9 fL (9.1-12.4); RDW Coefficient Variation 14.7 % (11.7-14.2); RDW Standard Deviation 57.2 fL (35.1-46.3); Red Blood Cell Count 2.86 M/mm3 (4.30-5.90); White Blood Cell Count 3.24 K/mm3 (4.00-11.30)
[2019-07-01 12:06] LABS: Calcium, Blood 8.3 mg/dL (8.5-10.1); Creatinine, Blood 2.91 mg/dL (0.60-1.20); Magnesium, Blood 2.2 mg/dL (1.6-2.4); Potassium, Blood 4.6 mmol/L (3.5-5.5)
[2019-07-01 12:23] LABS: Platelet Count 44 K/mm3 (150-400)
[2019-07-01 12:31] LABS: BASOPHILS PERCENT MAN 0 % (0-2); EOSINOPHILS ABSOLUTE MAN 0.06 K/mm3 (0.00-0.68); EOSINOPHILS PERCENT MAN 2 % (0-6); LYMPHOCYTES ABSOLUTE MAN 0.71 K/mm3 (0.84-5.20); LYMPHOCYTES PERCENT MAN 22 % (21-46); MONOCYTES ABSOLUTE MAN 0.32 K/mm3 (0.16-1.47); MONOCYTES PERCENT MAN 10 % (4-13); NEUTROPHILS ABSOLUTE MAN 2.13 K/mm3 (1.96-9.15); SEG NEUTROPHILS PERCENT MAN 66 % (41-73); TOTAL CELLS COUNTED 100
== END | disposition home or self-care (01) ==
LOC: LAB 10:06 → LAB HH 10:06
PROVIDERS: Internal Medicine
DX: E83.42 Hypomagnesemia (principal); Z79.899 Other long term (current) drug therapy; Z94.2 Lung transplant status
CPT/HCPCS: 80048; 83735; 85007; 85027

== ENCOUNTER → 2019-08-01 | Outpatient (CLI) | payer BC ==
[2019-08-01 06:49] LABS: Bilirubin, Urine Neg (Neg); Blood, Urine Neg (Neg); Glucose Qualitative, Urine 4+ (Neg); Ketones, Urine Neg (Neg); Leukocyte Esterase, Urine Neg (Neg); Nitrite, Urine Neg (Neg); Protein, Urine 3+ (Neg); Specific Gravity, Urine 1.015 (1.003-1.022); Urobilinogen, Urine NORM (Normal)
[2019-08-01 06:50] LABS: Albumin, Blood 3.3 g/dL (3.4-5.0); Anion Gap 7 mmol/L (6-16); Blood Urea Nitrogen 54 mg/dL (8-24); Bun/Creatinine Ratio 14.2 (12.0-20.0); CO2, Blood 20 mmol/L (21-32); Calcium, Blood 7.9 mg/dL (8.5-10.1); Chloride, Blood 113 mmol/L (98-108); Glomerular Filtration Rate 17 (60-); Glucose, Blood 192 mg/dL (70-99); Phosphorus, Blood 5.4 mg/dL (2.5-4.9); Potassium, Blood 5.5 mmol/L (3.5-5.5); Sodium, Blood 140 mmol/L (136-145)
[2019-08-01 07:15] LABS: Creatinine, Urine Random 67.6 mg/dL (27.00-270.00); Protein, Urine Random 97.2 mg/dL (0.0-11.9)
[2019-08-01 07:30] LABS: Appearance, Urine Clear (Clear); Bacteria Rare /hpf; Color, Urine Yellow (P-Yellow); Red Blood Cells, Urine 0-2 /hpf (0-2); Squamous Epithelial Cells Rare /hpf (Few); White Blood Cells, Urine 0-2 /hpf (0-5)
[2019-08-01 07:31] LABS: Mucus Light (0-Heavy)
== END | disposition home or self-care (01) ==
LOC: LAB 06:32
PROVIDERS: Internal Medicine
DX: N18.3 Chronic kidney disease, stage 3 (moderate) (principal)
CPT/HCPCS: 80069; 81001; 82570; 84156

== ENCOUNTER → 2019-10-05 | Outpatient (CLI) | payer BC ==
[2019-10-05 13:04] LABS: Bun/Creatinine Ratio 10.4 (12.0-20.0); Calcium, Blood 8.2 mg/dL (8.5-10.1); Creatinine, Blood 3.64 mg/dL (0.60-1.20); Potassium, Blood 3.6 mmol/L (3.5-5.5)
[2019-10-05 13:05] LABS: International Normalized Ratio 1.68; Prothrombin Time Results 17.5 Sec (9.7-11.5)
== END | disposition home or self-care (01) ==
LOC: OLS 08:56 → LAB SHORT 08:56
PROVIDERS: Internal Medicine
DX: I82.401 Acute embolism and thrombosis of unspecified deep veins of right lower extremity (principal); N18.4 Chronic kidney disease, stage 4 (severe)
CPT/HCPCS: 80048; 85610

== ENCOUNTER → 2019-11-11 | Outpatient (CLI) | payer BC ==
[2019-11-11 17:55] LABS: Hematocrit 34.5 % (37.0-53.0)
[2019-11-11 18:39] LABS: Albumin, Blood 3.2 g/dL (3.4-5.0); Anion Gap 11 mmol/L (6-16); Blood Urea Nitrogen 57 mg/dL (8-24); CO2, Blood 18 mmol/L (21-32); Calcium, Blood 7.7 mg/dL (8.5-10.1); Chloride, Blood 111 mmol/L (98-108); Creatinine, Blood 3.81 mg/dL (0.60-1.20); Glomerular Filtration Rate 17 (60-); Glucose, Blood 131 mg/dL (70-99); Phosphorus, Blood 6.4 mg/dL (2.5-4.9); Potassium, Blood 3.2 mmol/L (3.5-5.5); Sodium, Blood 140 mmol/L (136-145)
== END | disposition home or self-care (01) ==
LOC: LAB SHORT 12:38 → LAB 12:38
PROVIDERS: Internal Medicine
DX: N18.3 Chronic kidney disease, stage 3 (moderate) (principal)
CPT/HCPCS: 80069; 85014; 85018

== ENCOUNTER → 2020-02-03 | Outpatient (CLI) | payer BC ==
[2020-02-03 15:50] LABS: Free Thyroxine 1.07 ng/dL (0.70-1.60)
[2020-02-03 15:53] LABS: Thyroid Stimulating Hormone 0.352 uIU/mL (0.360-4.800); Triiodothyronine, Free 1.27 pg/mL (2.18-3.98)
[2020-02-04 18:08] LABS: THYROGLOBULIN ANTIBODY <1.0 IU/mL (0.0-0.9); THYROID PEROXIDASE (TPO) AB <9 IU/mL (0-34)
== END | disposition home or self-care (01) ==
LOC: LAB SHORT 13:40 → LAB 13:40
PROVIDERS: Internal Medicine
DX: E05.90 Thyrotoxicosis, unspecified without thyrotoxic crisis or storm (principal)
CPT/HCPCS: 83520; 84439; 84443; 84481; 86376; 86800

== ENCOUNTER → 2020-03-03 | Outpatient (CLI) | payer BC | END | disposition home or self-care (01) | LOC: LAB SHORT 09:30 → LAB SRC 09:30 | DX: T86.818 Other complications of lung transplant (principal); R05 Cough; Z79.899 Other long term (current) drug therapy | CPT/HCPCS: 87070; 87077; 87147; 87186; 87205 ==

== ENCOUNTER → 2020-04-09 | Outpatient (CLI) | payer BC ==
[2020-04-09 13:20] LABS: Albumin, Blood 3.2 g/dL (3.4-5.0); Anion Gap 11 mmol/L (6-16); Blood Urea Nitrogen 53 mg/dL (8-24); Bun/Creatinine Ratio 13.9 (12.0-20.0); CO2, Blood 29 mmol/L (21-32); Chloride, Blood 98 mmol/L (98-108); Creatinine, Blood 3.81 mg/dL (0.60-1.20); Glomerular Filtration Rate 17 (60-); Glucose, Blood 220 mg/dL (70-99); Magnesium, Blood 2.8 mg/dL (1.6-2.4); Phosphorus, Blood 4.6 mg/dL (2.5-4.9); Potassium, Blood 2.8 mmol/L (3.5-5.5); Sodium, Blood 138 mmol/L (136-145)
== END | disposition home or self-care (01) ==
LOC: LAB SHORT 11:14 → LAB SRC 11:14
PROVIDERS: Internal Medicine
DX: E87.6 Hypokalemia (principal)
CPT/HCPCS: 80069; 83735

== ENCOUNTER 2020-04-12 07:22 | Emergency (ER) | payer BC ==
[~2020-04-12] VITALS: Ht 175.3 cm; Wt 77.1 kg
[~2020-04-12 07:22] MED LIST changes: -BASAGLAR K100 UNIT/1 SC; -BUDE.25; -COLISTIMETHATE150 MG NEB; -Ceftriaxone250 MG NEB; -Fergon240 M1 PO; -Flonase 0.05% N16 GM; -HUMALOG KW200 UNIT/1 SC; -Humalog100 UNIT/1 SC; -Lomotil Tablet1 EACH PO; -METO10SY PO; -Mepron750 MG/5 M PO; -Mupirocin22 GM TOP; -PRAV20 PO; -URSO300 PO; -VITAMIN D3125 MCG PO
[2020-04-12] MEDS ORDERED: DIPATR PO (08:28)
[2020-04-12] MEDS ORDERED: CEPH500 PO ×2 (08:31→08:46)
== END 2020-04-12 08:45 | disposition home or self-care (01) ==
LOC: ER 07:22
DX: S91.332A Puncture wound without foreign body, left foot, initial encounter (principal); K21.9 Gastro-esophageal reflux disease without esophagitis; E11.22 Type 2 diabetes mellitus with diabetic chronic kidney disease; I12.9 Hypertensive chronic kidney disease with stage 1 through stage 4 chronic kidney disease, or unspecified chronic kidney disease; N18.4 Chronic kidney disease, stage 4 (severe); Z86.73 Personal history of transient ischemic attack (TIA), and cerebral infarction without residual deficits; Z79.51 Long term (current) use of inhaled steroids; Z79.4 Long term (current) use of insulin; Z79.899 Other long term (current) drug therapy; Z79.52 Long term (current) use of systemic steroids; Z79.01 Long term (current) use of anticoagulants; Z88.5 Allergy status to narcotic agent; Z88.8 Allergy status to other drugs, medicaments and biological substances
CPT/HCPCS: 73620; 99283-25; A9270

== ENCOUNTER → 2020-07-11 | Outpatient (CLI) | payer BC ==
[~2020-07-11] MED LIST changes: +ATOVAQUONE750 MG/51 PO; +BASAGLAR K100 UNIT/1 SC; +BUDE.25 NEB; +CAYSTON75 MG/1 ML INH; +COLISTIMETHATE150 MG NEB; +COPPER2 M1 PO; +COPPER2 MG PO; +Ceftriaxone250 MG NEB; +DIPATR PO; +ELIQUIS5 MG PO; +FERROUS GLUCON324 M7 PO; +Flonase 0.05% N16 GM; +GAVILAX PO; +HUMALOG100 UNIT/1 SC; +LORA.5 PO; +METO10SY PO; +MULTIVITAMIN PO; +Mupirocin22 GM TOP; +NIVESTYM300 MCG/1; +OLANZAPINE PO; +PAROEX473 ML PO; +POTA20LUD PO; +PRAV20 PO; +PYRI100 PO; +SIME80CH PO; +SPIRONOLACTONE25 MG PO; +TACROLIMUS PO; +URSO300 PO; +VANCOMYCIN50 MG/1 ML NEB; +ZYPREXA PO; +[UNRECOGNIZED DRUG - OTHER] SC
== END | disposition home or self-care (01) ==
LOC: LAB 09:30 → LAB SHORT 09:30
DX: Z48.24 Encounter for aftercare following lung transplant (principal); Z79.899 Other long term (current) drug therapy
CPT/HCPCS: 87070; 87077; 87186; 87205

== ENCOUNTER 2020-07-15 11:55 | Day surgery (SDC) | payer BC ==
[~2020-07-15] VITALS: Ht 180.3 cm; Wt 70.3 kg
[~2020-07-15 11:55] MED LIST changes: -ATOVAQUONE750 MG/51 PO; -BASAGLAR K100 UNIT/1 SC; -BUDE.25 NEB; -CAYSTON75 MG/1 ML INH; -COLISTIMETHATE150 MG NEB; -COPPER2 M1 PO; -COPPER2 MG PO; -Ceftriaxone250 MG NEB; -ELIQUIS5 MG PO; -FERROUS GLUCON324 M7 PO; -Flonase 0.05% N16 GM; -GAVILAX PO; -HUMALOG100 UNIT/1 SC; -LORA.5 PO; -METO10SY PO; -MULTIVITAMIN PO; -Mupirocin22 GM TOP; -NIVESTYM300 MCG/1; -OLANZAPINE PO; -PAROEX473 ML PO; -POTA20LUD PO; -PRAV20 PO; -PYRI100 PO; -SIME80CH PO; -SPIRONOLACTONE25 MG PO; -TACROLIMUS PO; -URSO300 PO; -VANCOMYCIN50 MG/1 ML NEB; -ZYPREXA PO; -[UNRECOGNIZED DRUG - OTHER] SC
[2020-07-16] MEDS ORDERED: CAYSTON75 MG/1 ML NEB (21:44)
[2020-07-16] MEDS ORDERED: [UNRECOGNIZED DRUG - OTHER] SC (21:48)
[2020-07-16] MEDS ORDERED: URSO300 PO (21:49)
[2020-07-16] MEDS ORDERED: HUMALOG100 UNIT/1 SC (21:51)
[2020-07-16] MEDS ORDERED: Ceftriaxone250 MG NEB (21:53)
[2020-07-16] MEDS ORDERED: Mupirocin22 GM TOP (21:54)
[2020-07-16] MEDS ORDERED: AZIT250 PO (21:55)
[2020-07-16] MEDS ORDERED: ACYC400 PO (21:55)
[2020-07-16] MEDS ORDERED: TACROLIMUS PO ×2 (21:59→22:06)
[2020-07-16] MEDS ORDERED: BUDE.25 NEB (22:00)
[2020-07-16] MEDS ORDERED: CREON DR 24,001 EACH PO (22:01)
[2020-07-16] MEDS ORDERED: ELIQUIS5 MG PO (22:02)
[2020-07-16] MEDS ORDERED: Flonase 0.05% N16 GM (22:03)
[2020-07-16] MEDS ORDERED: PRED5 PO (22:03)
[2020-07-16] MEDS ORDERED: ZYPREXA PO (22:05)
[2020-07-16] MEDS ORDERED: OLANZAPINE PO (22:05)
[2020-07-16] MEDS ORDERED: COLISTIMETHATE150 MG NEB (22:08)
[2020-07-16] MEDS ORDERED: LORA.5 PO (22:09)
[2020-07-16] MEDS ORDERED: BASAGLAR K100 UNIT/1 SC ×2 (22:10)
[2020-07-16] MEDS ORDERED: PRAV20 PO (22:11)
[2020-07-16] MEDS ORDERED: POTA20LUD PO ×2 (22:12→23:10)
[2020-07-16] MEDS ORDERED: SPIRONOLACTONE25 MG PO (22:13)
[2020-07-16] MEDS ORDERED: FURO20 PO (22:14)
[2020-07-16] MEDS ORDERED: OMEP20ER PO (22:15)
[2020-07-16] MEDS ORDERED: FERROUS GLUCON324 M7 PO (22:23)
[2020-07-16] MEDS ORDERED: PYRI100 PO (22:24)
[2020-07-16] MEDS ORDERED: DEXL60CA3 PO (23:08)
[2020-07-16] MEDS ORDERED: ATOVAQUONE750 MG/51 PO (23:09)
[2020-07-16] MEDS ORDERED: Levitra20 MG PO (23:11)
[2020-07-16] MEDS ORDERED: DIPATR PO (23:12)
[2020-07-16] MEDS ORDERED: MULTIVITAMIN PO (23:12)
[2020-07-16] MEDS ORDERED: VANCOMYCIN50 MG/1 ML NEB (23:14)
[2020-07-16] MEDS ORDERED: COPPER2 M1 PO (23:15)
[2020-07-16] MEDS ORDERED: METO10SY PO (23:18)
[2020-07-16] MEDS ORDERED: TRAZ50 PO (23:19)
[2020-07-16] MEDS ORDERED: SIME80CH PO (23:19)
[2020-07-16] MEDS ORDERED: PAROEX473 ML PO (23:34)
== END 2020-07-15 22:56 | disposition home or self-care (01) ==
LOC: ATC 11:55
DX: J15.212 Pneumonia due to Methicillin resistant Staphylococcus aureus (principal); K21.9 Gastro-esophageal reflux disease without esophagitis; I12.9 Hypertensive chronic kidney disease with stage 1 through stage 4 chronic kidney disease, or unspecified chronic kidney disease; E11.22 Type 2 diabetes mellitus with diabetic chronic kidney disease; N18.4 Chronic kidney disease, stage 4 (severe); Z79.01 Long term (current) use of anticoagulants; Z79.4 Long term (current) use of insulin; Z88.4 Allergy status to anesthetic agent; Z88.5 Allergy status to narcotic agent; Z88.8 Allergy status to other drugs, medicaments and biological substances; Z85.828 Personal history of other malignant neoplasm of skin; Z94.2 Lung transplant status; Z95.828 Presence of other vascular implants and grafts; Z86.73 Personal history of transient ischemic attack (TIA), and cerebral infarction without residual deficits
CPT/HCPCS: 36569; 96365; C1751; J3370

== ENCOUNTER 2020-07-16 07:19 | Day surgery (SDC) | payer BC ==
[2020-07-16 15:37] LABS: Glomerular Filtration Rate 11 (60-)
[2020-07-16] MEDS ORDERED: CAYSTON75 MG/1 ML NEB (21:44)
[2020-07-16] MEDS ORDERED: [UNRECOGNIZED DRUG - OTHER] SC (21:48)
[2020-07-16] MEDS ORDERED: URSO300 PO (21:49)
[2020-07-16] MEDS ORDERED: HUMALOG100 UNIT/1 SC (21:51)
[2020-07-16] MEDS ORDERED: Ceftriaxone250 MG NEB (21:53)
[2020-07-16] MEDS ORDERED: Mupirocin22 GM TOP (21:54)
[2020-07-16] MEDS ORDERED: AZIT250 PO (21:55)
[2020-07-16] MEDS ORDERED: ACYC400 PO (21:55)
[2020-07-16] MEDS ORDERED: TACROLIMUS PO ×2 (21:59→22:06)
[2020-07-16] MEDS ORDERED: BUDE.25 NEB (22:00)
[2020-07-16] MEDS ORDERED: CREON DR 24,001 EACH PO (22:01)
[2020-07-16] MEDS ORDERED: ELIQUIS5 MG PO (22:02)
[2020-07-16] MEDS ORDERED: PRED5 PO (22:03)
[2020-07-16] MEDS ORDERED: Flonase 0.05% N16 GM (22:03)
[2020-07-16] MEDS ORDERED: OLANZAPINE PO (22:05)
[2020-07-16] MEDS ORDERED: ZYPREXA PO (22:05)
[2020-07-16] MEDS ORDERED: COLISTIMETHATE150 MG NEB (22:08)
[2020-07-16] MEDS ORDERED: LORA.5 PO (22:09)
[2020-07-16] MEDS ORDERED: BASAGLAR K100 UNIT/1 SC ×2 (22:10)
[2020-07-16] MEDS ORDERED: PRAV20 PO (22:11)
[2020-07-16] MEDS ORDERED: POTA20LUD PO ×2 (22:12→23:10)
[2020-07-16] MEDS ORDERED: SPIRONOLACTONE25 MG PO (22:13)
[2020-07-16] MEDS ORDERED: FURO20 PO (22:14)
[2020-07-16] MEDS ORDERED: OMEP20ER PO (22:15)
[2020-07-16] MEDS ORDERED: FERROUS GLUCON324 M7 PO (22:23)
[2020-07-16] MEDS ORDERED: PYRI100 PO (22:24)
[2020-07-16] MEDS ORDERED: DEXL60CA3 PO (23:08)
[2020-07-16] MEDS ORDERED: ATOVAQUONE750 MG/51 PO (23:09)
[2020-07-16] MEDS ORDERED: Levitra20 MG PO (23:11)
[2020-07-16] MEDS ORDERED: MULTIVITAMIN PO (23:12)
[2020-07-16] MEDS ORDERED: DIPATR PO (23:12)
[2020-07-16] MEDS ORDERED: VANCOMYCIN50 MG/1 ML NEB (23:14)
[2020-07-16] MEDS ORDERED: COPPER2 M1 PO (23:15)
[2020-07-16] MEDS ORDERED: METO10SY PO (23:18)
[2020-07-16] MEDS ORDERED: TRAZ50 PO (23:19)
[2020-07-16] MEDS ORDERED: SIME80CH PO (23:19)
[2020-07-16] MEDS ORDERED: PAROEX473 ML PO (23:34)
[2020-07-17] MEDS ORDERED: CAYSTON75 MG/1 ML INH (03:55)
[2020-07-17] MEDS ORDERED: NIVESTYM300 MCG/1 (04:00)
[2020-07-17] MEDS ORDERED: GAVILAX PO (04:14)
[2020-07-17] MEDS ORDERED: LOSA25 PO (04:15)
[2020-07-17] MEDS ORDERED: ATOVAQUONE750 MG/51 PO (08:51)
[2020-07-17] MEDS ORDERED: COPPER2 MG PO (08:53)
[2020-07-17] MEDS ORDERED: DEXL60CA3 PO (08:55)
[2020-07-17] MEDS ORDERED: METO10SY PO (08:58)
[2020-07-17] MEDS ORDERED: DIPATR PO (09:00)
[2020-07-17] MEDS ORDERED: CREON DR 24,001 EACH PO (10:07)
== END 2020-07-16 15:50 | disposition home or self-care (01) ==
LOC: ATC 07:19
PROVIDERS: Internal Medicine Critical Care Medicine
DX: J15.212 Pneumonia due to Methicillin resistant Staphylococcus aureus (principal); J47.9 Bronchiectasis, uncomplicated; E84.9 Cystic fibrosis, unspecified; F32.9 Major depressive disorder, single episode, unspecified; K21.9 Gastro-esophageal reflux disease without esophagitis; E11.22 Type 2 diabetes mellitus with diabetic chronic kidney disease; I12.9 Hypertensive chronic kidney disease with stage 1 through stage 4 chronic kidney disease, or unspecified chronic kidney disease; N18.4 Chronic kidney disease, stage 4 (severe); E46 Unspecified protein-calorie malnutrition; J96.90 Respiratory failure, unspecified, unspecified whether with hypoxia or hypercapnia; Z99.81 Dependence on supplemental oxygen; Z88.5 Allergy status to narcotic agent; Z88.8 Allergy status to other drugs, medicaments and biological substances; Z94.2 Lung transplant status; Z86.73 Personal history of transient ischemic attack (TIA), and cerebral infarction without residual deficits
CPT/HCPCS: 36592; 80202; 82565

== ENCOUNTER 2020-07-16 19:24 | Inpatient (IN) | payer BC ==
[~2020-07-16] VITALS: Ht 177.8 cm; Wt 72.3 kg
[2020-07-16 20:37] LABS: BASOPHILS ABSOLUTE AUTO 0.01 K/mm3 (0.00-0.23); BASOPHILS PERCENT AUTO 0 % (0-2); EOSINOPHILS ABSOLUTE AUTO 0.04 K/mm3 (0.00-0.68); EOSINOPHILS PERCENT AUTO 1 % (0-6); Hematocrit 29.8 % (37.0-53.0); Hemoglobin 9.8 g/dL (13.5-17.5); IMMATURE GRAN ABSOLUTE AUTO 0.01 K/mm3 (0.00-0.10); IMMATURE GRAN PERCENT AUTO 0 % (0-1); LYMPHOCYTES ABSOLUTE AUTO 0.34 K/mm3 (0.84-5.20); LYMPHOCYTES PERCENT AUTO 10 % (21-46); MONOCYTES ABSOLUTE AUTO 0.13 K/mm3 (0.16-1.47); MONOCYTES PERCENT AUTO 4 % (4-13); Mean Corpuscular HGB 34.8 pg (26.0-34.0); Mean Corpuscular HGB Conc 32.9 g/dL (31.5-36.5); Mean Corpuscular Volume 106 fL (80-100); Mean Platelet Volume 12.5 fL (9.1-12.4); NEUTROPHILS ABSOLUTE AUTO 3.03 K/mm3 (1.96-9.15); NEUTROPHILS PERCENT AUTO 85 % (41-73); RDW Coefficient Variation 14.7 % (11.7-14.2); Red Blood Cell Count 2.82 M/mm3 (4.30-5.90); White Blood Cell Count 3.56 K/mm3 (4.00-11.30)
[2020-07-16 20:43] LABS: Platelet Count 30 K/mm3 (150-400)
[2020-07-16 20:48] LABS: Alanine Aminotransfer (ALT/SGP 25 U/L (12-78); Albumin, Blood 2.8 g/dL (3.4-5.0); Albumin/Globulin Ratio 0.7 (0.8-1.8); Alk Phos 214 U/L (50-136); Anion Gap 11 mmol/L (6-16); Aspartate Aminotrans (AST/SGOT 17 U/L (12-37); Bilirubin, Total 0.4 mg/dL (0.1-1.0); Blood Urea Nitrogen 60 mg/dL (8-24); Bun/Creatinine Ratio 10.5 (12.0-20.0); CO2, Blood 19 mmol/L (21-32); Calcium, Blood 7.5 mg/dL (8.5-10.1); Chloride, Blood 108 mmol/L (98-108); Creatinine, Blood 5.73 mg/dL (0.60-1.20); Globulin, Blood 3.9 g/dL (2.2-4.0); Glomerular Filtration Rate 11 (60-); Glucose, Blood 373 mg/dL (70-99); Potassium, Blood 4.7 mmol/L (3.5-5.5); Sodium, Blood 138 mmol/L (136-145); Total Protein, Blood 6.7 g/dL (6.4-8.2)
[2020-07-16] MEDS ORDERED: CAYSTON75 MG/1 ML NEB (21:44)
[2020-07-16] MEDS ORDERED: [UNRECOGNIZED DRUG - OTHER] SC (21:48)
[2020-07-16] MEDS ORDERED: URSO300 PO (21:49)
[2020-07-16] MEDS ORDERED: HUMALOG100 UNIT/1 SC (21:51)
[2020-07-16] MEDS ORDERED: Ceftriaxone250 MG NEB (21:53)
[2020-07-16] MEDS ORDERED: Mupirocin22 GM TOP (21:54)
[2020-07-16] MEDS ORDERED: AZIT250 PO (21:55)
[2020-07-16] MEDS ORDERED: ACYC400 PO (21:55)
[2020-07-16] MEDS ORDERED: TACROLIMUS PO ×2 (21:59→22:06)
[2020-07-16] MEDS ORDERED: BUDE.25 NEB (22:00)
[2020-07-16] MEDS ORDERED: CREON DR 24,001 EACH PO (22:01)
[2020-07-16] MEDS ORDERED: ELIQUIS5 MG PO (22:02)
[2020-07-16] MEDS ORDERED: Flonase 0.05% N16 GM (22:03)
[2020-07-16] MEDS ORDERED: PRED5 PO (22:03)
[2020-07-16] MEDS ORDERED: ZYPREXA PO (22:05)
[2020-07-16] MEDS ORDERED: OLANZAPINE PO (22:05)
[2020-07-16 22:08] LABS: Source, Urine Clean Catch
[2020-07-16] MEDS ORDERED: COLISTIMETHATE150 MG NEB (22:08)
[2020-07-16] MEDS ORDERED: LORA.5 PO (22:09)
[2020-07-16] MEDS ORDERED: BASAGLAR K100 UNIT/1 SC ×2 (22:10)
[2020-07-16] MEDS ORDERED: PRAV20 PO (22:11)
[2020-07-16] MEDS ORDERED: POTA20LUD PO ×2 (22:12→23:10)
[2020-07-16] MEDS ORDERED: SPIRONOLACTONE25 MG PO (22:13)
[2020-07-16] MEDS ORDERED: FURO20 PO (22:14)
[2020-07-16] MEDS ORDERED: OMEP20ER PO (22:15)
[2020-07-16 22:17] LABS: Bilirubin, Urine Neg (Neg); Blood, Urine 5+ (Neg); Glucose Qualitative, Urine 4+ (Neg); Ketones, Urine Neg (Neg); Leukocyte Esterase, Urine Neg (Neg); Nitrite, Urine Neg (Neg); Protein, Urine 2+ (Neg); Urobilinogen, Urine NORM (Normal)
[2020-07-16] MEDS ORDERED: FERROUS GLUCON324 M7 PO (22:23)
[2020-07-16] MEDS ORDERED: PYRI100 PO (22:24)
[2020-07-16 22:26] LABS: Amorphous Light (0-Heavy); Appearance, Urine Hazy (Clear); Bacteria Rare /hpf; Color, Urine Yellow (P-Yellow); Red Blood Cells, Urine TNTC /hpf (0-2); Squamous Epithelial Cells Few /hpf (Few); White Blood Cells, Urine Rare /hpf (0-5)
[2020-07-16] MEDS ORDERED: DEXL60CA3 PO (23:08)
[2020-07-16] MEDS ORDERED: ATOVAQUONE750 MG/51 PO (23:09)
[2020-07-16] MEDS ORDERED: Levitra20 MG PO (23:11)
[2020-07-16] MEDS ORDERED: DIPATR PO (23:12)
[2020-07-16] MEDS ORDERED: MULTIVITAMIN PO (23:12)
[2020-07-16] MEDS ORDERED: VANCOMYCIN50 MG/1 ML NEB (23:14)
[2020-07-16] MEDS ORDERED: COPPER2 M1 PO (23:15)
[2020-07-16] MEDS ORDERED: METO10SY PO (23:18)
[2020-07-16] MEDS ORDERED: TRAZ50 PO (23:19)
[2020-07-16] MEDS ORDERED: SIME80CH PO (23:19)
[2020-07-16] MEDS ORDERED: PAROEX473 ML PO (23:34)
--- NOTE | 2020-07-17 03:13 | NUR ---
SPOKE W/ PHARMACISTBILLY REGARDING PT MED ORDERS. PHARMICIST STATES DR. REA INSTRUCTED HIM TO DELETE ORDERS AND DR. REA WILL REINPUT THEM. ORDERS HAVE NOT YET BEEN ENTERED. BILLY STATES HE IS UNABLE TO REACH DR. REA AND ASKED DR. VILLALOBOS TO REVIEW PT ORDERS.
[2020-07-17] MEDS ORDERED: CAYSTON75 MG/1 ML INH (03:55)
[2020-07-17] MEDS ORDERED: NIVESTYM300 MCG/1 (04:00)
[2020-07-17] MEDS ORDERED: GAVILAX PO (04:14)
[2020-07-17] MEDS ORDERED: LOSA25 PO (04:15)
--- NOTE | 2020-07-17 04:17 | NUR ---
SHIFT SUMMARY: PT ADMITTED TO MEDICAL FLOOR FROM ER [facility]. AAOX4 W/ SOME FOREGETFULLNESS SURROUNDING MEDICATION AND MEDICAL HISTORY DETAILS. DENIES PAIN. DENIES SOB. 02 98% ON RA. RHONCHI AUSCULTATED BILATERALLY. REPORTS COUGH PRODUCING MOD AMTS OF THICK GREEN/YELLOW SPUTUM. BEDREST. IV FLUIDS INFUSING CONTINUOUSLY. WCTM.
--- NOTE | 2020-07-17 06:04 | NUR ---
LATE ENTRY FOR 0100. RECEIVED CALL FROM DR. VILLALOBOS STATING PT SPOUSE ASKED FOR RESULTS OF CHEST X-RAY. RESULTS ARE UNREMARKABLE. PT SPOUSE IS NOT PRESENT. INFORMED PT OF RESULTS AND HE ASKED THAT WE DON'T CALL PT AT HOME AT THIS TIME. INSTEAD INFORM HER IN THE AM.
--- NOTE | 2020-07-17 06:27 | NUR ---
[facility] CONTACT INFORMATION: FAX: [phone] PHONE NUMBER FOR PT CARE COORDINATORS- TITA MARINO RACHEL- [phone] DR JOSE JAMES CONTACT LINE: [phone]
[2020-07-17 08:07] LABS: Albumin, Blood 2.5 g/dL (3.4-5.0); Albumin/Globulin Ratio 0.8 (0.8-1.8); Bilirubin, Total 0.6 mg/dL (0.1-1.0); Bun/Creatinine Ratio 10.9 (12.0-20.0); Calcium, Blood 7.7 mg/dL (8.5-10.1); Creatinine, Blood 5.39 mg/dL (0.60-1.20); Globulin, Blood 3.3 g/dL (2.2-4.0); Total Protein, Blood 5.8 g/dL (6.4-8.2)
[2020-07-17] MEDS ORDERED: ATOVAQUONE750 MG/51 PO (08:51)
[2020-07-17] MEDS ORDERED: COPPER2 MG PO (08:53)
[2020-07-17] MEDS ORDERED: DEXL60CA3 PO (08:55)
[2020-07-17] MEDS ORDERED: METO10SY PO (08:58)
[2020-07-17] MEDS ORDERED: DIPATR PO (09:00)
[2020-07-17] MEDS ORDERED: CREON DR 24,001 EACH PO (10:07)
[2020-07-17 14:08] LABS: Source, Urine Voided
[2020-07-17 14:46] LABS: Appearance, Urine Clear (Clear); Bilirubin, Urine Neg (Neg); Blood, Urine 3+ (Neg); Color, Urine Yellow (P-Yellow); Glucose Qualitative, Urine 3+ (Neg); Ketones, Urine Neg (Neg); Leukocyte Esterase, Urine Neg (Neg); Nitrite, Urine Neg (Neg); Protein, Urine 2+ (Neg); Specific Gravity, Urine 1.015 (1.003-1.022); Urobilinogen, Urine NORM (Normal)
[2020-07-17 15:09] LABS: Bacteria Few /hpf; Red Blood Cells, Urine 25-50 /hpf (0-2); Squamous Epithelial Cells Few /hpf (Few); White Blood Cells, Urine 0-2 /hpf (0-5)
--- NOTE | 2020-07-17 16:29 | NUR ---
PT HAD A RUNS OF VTACH AND PT ASYMPTOMATIC, DENIES CP OR CHEST PRESSURE. DR QUISPE NOTIFIED
--- NOTE | 2020-07-17 17:44 | NUR ---
SHIFT SUMMARY PT ALERT AND INDEPENDENT IN THE ROOM. PT IS NOW ON LR @125ML/HR PER DR QUISPE- DC'D THE NS TODAY. MED REC DONE THIS AM AND VERIFIED BY THE . PT HAD A RUN OF VTAANNIA AND DR MAGAÑA AND PT DENIES CP OR DISCOMFORT. PT ALSO MANAGE HIS MEDICATIONS ESPECIALLY THE CREON. DOCUMENTED IN THE EMAR. DR MORALEZ CONSULTED THE PT TODAY WITH AT BEDSIDE. AWAITS FOR TACROLIMUS LEVEL. BED IS IN THE LOWEST POSITION AND CALL LIGHT WITHIN REACH
--- NOTE | 2020-07-18 03:30 | NUR ---
SHIFT SUMMARY PATIENT HAD NO ACUTE CHANGES OBSERVED. AXOX 4 AND INDEPENDENT IN ROOM. LR INFUSED AT 125mL/HR X ONE BAG. IV ABXS INFUSED. CBG 310. TELERADIOLOGIST REPORTS NSR @ 80. VSS/AFEBRILE. DENIES PAIN, SOB, AND N/V. POWERGLIDE TOMMY INTACT. COOPERATIVE WITH CARE. CALL LIGHT IN REACH. BED IN LOWEST POSITION. WILL CONTINUE TO MONITOR UNTIL DAY SHIFT NURSE ASSUMES CARE.
[2020-07-18 06:04] LABS: Anion Gap 10 mmol/L (6-16); Blood Urea Nitrogen 52 mg/dL (8-24); Bun/Creatinine Ratio 10.1 (12.0-20.0); CO2, Blood 18 mmol/L (21-32); Calcium, Blood 7.9 mg/dL (8.5-10.1); Chloride, Blood 113 mmol/L (98-108); Creatinine, Blood 5.16 mg/dL (0.60-1.20); Glomerular Filtration Rate 12 (60-); Glucose, Blood 164 mg/dL (70-99); Potassium, Blood 4.1 mmol/L (3.5-5.5); Sodium, Blood 141 mmol/L (136-145); Vancomycin, Random 21.5 ug/mL
--- NOTE | 2020-07-18 12:25 | NUR ---
PT TRANSFER TO [facility] PT AxOx4. PLEASANT AND COOPERATIVE WITH CARE. PT HAS COBRA TRANSFER ORDERED TO [facility] FOR UROLOGY SURGICAL CONSULT TODAY VIA AMBULANCE. PT UPDATED. REPORT CALLED TO [facility] NURSE, HONG. PER HONG, PATIENT CAN HAVE COVID TEST AT [facility]. VITALS REVIEWED. DENIES PAIN. BELONGINGS GATHERED AND TAKEN BY JHONATAN. PT TRANSFERRED SAFELY AND ESCORTED OUT VIA GURNEY BY [facility].
== END 2020-07-18 12:39 | disposition short-term general hospital (02) | DRG 682 ==
LOC: ER 19:24 → MEDS 23:25
PROVIDERS: Emergency Medicine; Hospitalist; Internal Medicine; ADMIT Internal Medicine
DX: N17.9 Acute kidney failure, unspecified (principal); J15.212 Pneumonia due to Methicillin resistant Staphylococcus aureus; E84.9 Cystic fibrosis, unspecified; Z94.2 Lung transplant status; N18.4 Chronic kidney disease, stage 4 (severe); E11.22 Type 2 diabetes mellitus with diabetic chronic kidney disease; I12.9 Hypertensive chronic kidney disease with stage 1 through stage 4 chronic kidney disease, or unspecified chronic kidney disease; D69.6 Thrombocytopenia, unspecified; K86.89 Other specified diseases of pancreas; K21.9 Gastro-esophageal reflux disease without esophagitis; N13.30 Unspecified hydronephrosis; Z86.73 Personal history of transient ischemic attack (TIA), and cerebral infarction without residual deficits; Z86.718 Personal history of other venous thrombosis and embolism; Z79.4 Long term (current) use of insulin
CPT/HCPCS: 36415; 71046; 74176; 76770; 80048; 80053; 80202; 81001; 82947; 83690; 83880; 85025; 94760; 96360; 96361; 99285-25; A9270; J0713; J3370; J7030; J7050; J7120; J7507; J7512; Q5110

== ENCOUNTER → 2020-11-09 | Outpatient (CLI) | payer BC ==
[~2020-11-09] MED LIST changes: +ATOVAQUONE750 MG/51 PO; +BASAGLAR K100 UNIT/1 SC; +BUDE.25 NEB; +CAYSTON75 MG/1 ML INH; +COLISTIMETHATE150 MG NEB; +COPPER2 M1 PO; +COPPER2 MG PO; +Ceftriaxone250 MG NEB; +ELIQUIS5 MG PO; +FERROUS GLUCON324 M7 PO; +Flonase 0.05% N16 GM; +GAVILAX PO; +HUMALOG100 UNIT/1 SC; +LORA.5 PO; +METO10SY PO; +MULTIVITAMIN PO; +Mupirocin22 GM TOP; +NIVESTYM300 MCG/1; +OLANZAPINE PO; +PAROEX473 ML PO; +POTA20LUD PO; +PRAV20 PO; +PYRI100 PO; +SIME80CH PO; +SPIRONOLACTONE25 MG PO; +TACROLIMUS PO; +URSO300 PO; +VANCOMYCIN50 MG/1 ML NEB; +ZYPREXA PO; +[UNRECOGNIZED DRUG - OTHER] SC
== END | disposition home or self-care (01) ==
LOC: LAB 09:00 → LAB SHORT 09:00
DX: R05 Cough (principal); Z94.2 Lung transplant status
CPT/HCPCS: 87070; 87077; 87186; 87205

== ENCOUNTER 2020-11-16 16:11 | Day surgery (SDC) | payer BC ==
[~2020-11-16] VITALS: Wt 71.9 kg
== END 2020-11-16 18:36 | disposition home or self-care (01) ==
LOC: ATC 16:11
DX: J15.212 Pneumonia due to Methicillin resistant Staphylococcus aureus (principal); K21.9 Gastro-esophageal reflux disease without esophagitis; I12.9 Hypertensive chronic kidney disease with stage 1 through stage 4 chronic kidney disease, or unspecified chronic kidney disease; E11.22 Type 2 diabetes mellitus with diabetic chronic kidney disease; N18.4 Chronic kidney disease, stage 4 (severe); Z94.2 Lung transplant status; Z79.4 Long term (current) use of insulin
CPT/HCPCS: 96365; 96366; J3370; J7050

== ENCOUNTER 2020-11-17 09:05 | Day surgery (SDC) | payer BC ==
[~2020-11-17] VITALS: Ht 177.8 cm; Wt 71.9 kg
[2020-11-17 15:31] LABS: Creatinine, Blood 4.23 mg/dL (0.60-1.20); Vancomycin, Random 17.2 ug/mL
== END 2020-11-17 23:00 | disposition home or self-care (01) ==
LOC: ATC 09:05
PROVIDERS: Internal Medicine Critical Care Medicine
DX: J15.212 Pneumonia due to Methicillin resistant Staphylococcus aureus (principal); I12.9 Hypertensive chronic kidney disease with stage 1 through stage 4 chronic kidney disease, or unspecified chronic kidney disease; E11.22 Type 2 diabetes mellitus with diabetic chronic kidney disease; N18.4 Chronic kidney disease, stage 4 (severe); K21.9 Gastro-esophageal reflux disease without esophagitis; Z79.4 Long term (current) use of insulin; Z94.2 Lung transplant status
CPT/HCPCS: 36415; 80202; 82565; 99211

== ENCOUNTER 2020-11-18 08:00 | Day surgery (SDC) | payer BC ==
[~2020-11-18] VITALS: Ht 177.8 cm; Wt 71.9 kg
[2020-11-18 15:49] LABS: Creatinine, Blood 4.03 mg/dL (0.60-1.20); Vancomycin, Random 12.7 ug/mL
== END 2020-11-18 17:06 | disposition home or self-care (01) ==
LOC: ATC 08:00
PROVIDERS: Internal Medicine Critical Care Medicine
DX: J15.212 Pneumonia due to Methicillin resistant Staphylococcus aureus (principal); E11.9 Type 2 diabetes mellitus without complications; I10 Essential (primary) hypertension; K21.9 Gastro-esophageal reflux disease without esophagitis; Z94.2 Lung transplant status; Z79.01 Long term (current) use of anticoagulants; Z79.4 Long term (current) use of insulin; Z79.899 Other long term (current) drug therapy; Z88.8 Allergy status to other drugs, medicaments and biological substances; Z88.5 Allergy status to narcotic agent; Z86.73 Personal history of transient ischemic attack (TIA), and cerebral infarction without residual deficits
CPT/HCPCS: 80202; 82565; 96365; J3370

== ENCOUNTER 2020-11-20 00:36 | Day surgery (SDC) | payer BC ==
[2020-11-20 10:29] LABS: Vancomycin, Random 16.2 ug/mL
[2020-11-20 11:15] LABS: Creatinine, Blood 3.98 mg/dL (0.60-1.20)
== END 2020-11-20 12:23 | disposition home or self-care (01) ==
LOC: ATC 00:36
PROVIDERS: Internal Medicine Critical Care Medicine
DX: J15.212 Pneumonia due to Methicillin resistant Staphylococcus aureus (principal); I13.10 Hypertensive heart and chronic kidney disease without heart failure, with stage 1 through stage 4 chronic kidney disease, or unspecified chronic kidney disease; E11.22 Type 2 diabetes mellitus with diabetic chronic kidney disease; N18.4 Chronic kidney disease, stage 4 (severe); K21.9 Gastro-esophageal reflux disease without esophagitis; Z79.4 Long term (current) use of insulin; Z94.2 Lung transplant status; Z88.5 Allergy status to narcotic agent; Z88.8 Allergy status to other drugs, medicaments and biological substances; Z85.828 Personal history of other malignant neoplasm of skin; Z99.81 Dependence on supplemental oxygen
CPT/HCPCS: 80202; 82565; 96365; J3370

== ENCOUNTER 2020-11-22 00:31 | Day surgery (SDC) | payer BC ==
--- NOTE | 2020-11-22 07:49 | NUR ---
LABS DRAWN FROM AFTER FLUSH AND WASTE.
[2020-11-22 08:08] LABS: Creatinine, Blood 3.52 mg/dL (0.60-1.20); Vancomycin, Random 18.3 ug/mL
== END 2020-11-22 09:47 | disposition home or self-care (01) ==
LOC: ATC 00:31
PROVIDERS: Internal Medicine Critical Care Medicine
DX: J15.212 Pneumonia due to Methicillin resistant Staphylococcus aureus (principal); J47.9 Bronchiectasis, uncomplicated; E11.9 Type 2 diabetes mellitus without complications; K21.9 Gastro-esophageal reflux disease without esophagitis; I10 Essential (primary) hypertension; Z94.2 Lung transplant status; Z79.4 Long term (current) use of insulin; Z88.8 Allergy status to other drugs, medicaments and biological substances; Z88.5 Allergy status to narcotic agent; Z86.73 Personal history of transient ischemic attack (TIA), and cerebral infarction without residual deficits; Z79.2 Long term (current) use of antibiotics
CPT/HCPCS: 80202; 82565; 96365; J3370; J7040

== ENCOUNTER 2020-11-24 00:50 | Day surgery (SDC) | payer BC ==
--- NOTE | 2020-11-24 16:37 | NUR ---
FLUSHED IV WITH 20CC NS AND LAB DRAWN FROM IV SITE. 7CC OF BLOOD DISCARED AND 4CC FOR LAB DRAWN. LINE FLUSHED WITH 20CC OF NS AFTER DRAW.
[2020-11-24 17:13] LABS: Vancomycin, Random 14.4 ug/mL
== END 2020-11-24 18:53 | disposition home or self-care (01) ==
LOC: ATC 00:50
PROVIDERS: Internal Medicine Critical Care Medicine
DX: J15.212 Pneumonia due to Methicillin resistant Staphylococcus aureus (principal); I12.9 Hypertensive chronic kidney disease with stage 1 through stage 4 chronic kidney disease, or unspecified chronic kidney disease; E11.22 Type 2 diabetes mellitus with diabetic chronic kidney disease; N18.4 Chronic kidney disease, stage 4 (severe); K21.9 Gastro-esophageal reflux disease without esophagitis; Z86.73 Personal history of transient ischemic attack (TIA), and cerebral infarction without residual deficits; Z94.2 Lung transplant status; Z79.4 Long term (current) use of insulin
CPT/HCPCS: 80202; 82565; 96365; J3370; J7040

== ENCOUNTER 2020-11-26 00:56 | Day surgery (SDC) | payer BC ==
--- NOTE | 2020-11-26 10:09 | NUR ---
LABS DRAWN FROM IV PER PROTOCOL.
[2020-11-26 10:32] LABS: Creatinine, Blood 3.77 mg/dL (0.60-1.20); Vancomycin, Random 17.4 ug/mL
== END 2020-11-26 12:22 | disposition home or self-care (01) ==
LOC: ATC 00:56
PROVIDERS: Internal Medicine Critical Care Medicine
DX: J15.212 Pneumonia due to Methicillin resistant Staphylococcus aureus (principal); I12.9 Hypertensive chronic kidney disease with stage 1 through stage 4 chronic kidney disease, or unspecified chronic kidney disease; E11.22 Type 2 diabetes mellitus with diabetic chronic kidney disease; N18.4 Chronic kidney disease, stage 4 (severe); K21.9 Gastro-esophageal reflux disease without esophagitis; Z94.2 Lung transplant status; Z99.81 Dependence on supplemental oxygen; Z79.01 Long term (current) use of anticoagulants; Z79.4 Long term (current) use of insulin; Z88.5 Allergy status to narcotic agent; Z88.8 Allergy status to other drugs, medicaments and biological substances
CPT/HCPCS: 80202; 82565; 96365; J3370; J7040

== ENCOUNTER 2020-11-28 02:11 | Day surgery (SDC) | payer BC | END 2020-11-28 09:00 | disposition home or self-care (01) | LOC: ATC 02:11 | DX: J15.212 Pneumonia due to Methicillin resistant Staphylococcus aureus (principal); I12.9 Hypertensive chronic kidney disease with stage 1 through stage 4 chronic kidney disease, or unspecified chronic kidney disease; E11.22 Type 2 diabetes mellitus with diabetic chronic kidney disease; N18.4 Chronic kidney disease, stage 4 (severe); K21.9 Gastro-esophageal reflux disease without esophagitis; Z94.2 Lung transplant status; Z79.4 Long term (current) use of insulin | CPT/HCPCS: 96365; J3370; J7040 ==

== ENCOUNTER 2020-12-28 06:16 | Day surgery (SDC) | payer BC ==
[~2020-12-28] VITALS: Ht 180.3 cm; Wt 75.4 kg
[2020-12-28] MEDS ORDERED: POTA20LUD (07:10)
[2020-12-28] MEDS ORDERED: POTASSIUM CITR15 ME1 PO (07:11)
[2020-12-28] MEDS ORDERED: FURO40 PO (07:14)
[2020-12-28] MEDS ORDERED: FURO20 PO (07:14)
[2020-12-28] MEDS ORDERED: ERGO400 PO (07:15)
[2020-12-28] MEDS ORDERED: ESZO1 PO (07:15)
[2020-12-28] MEDS ORDERED: VANCOMYCIN50 MG/1 ML (07:16)
[2020-12-28] MEDS ORDERED: CLAR500 PO (07:20)
[2020-12-28 08:22] LABS: BASOPHILS ABSOLUTE AUTO 0.01 K/mm3 (0.00-0.23); BASOPHILS PERCENT AUTO 0 % (0-2); EOSINOPHILS ABSOLUTE AUTO 0.02 K/mm3 (0.00-0.68); EOSINOPHILS PERCENT AUTO 1 % (0-6); Hemoglobin 9.6 g/dL (13.5-17.5); IMMATURE GRAN ABSOLUTE AUTO 0.01 K/mm3 (0.00-0.10); IMMATURE GRAN PERCENT AUTO 0 % (0-1); LYMPHOCYTES ABSOLUTE AUTO 0.19 K/mm3 (0.84-5.20); LYMPHOCYTES PERCENT AUTO 6 % (21-46); MONOCYTES ABSOLUTE AUTO 0.06 K/mm3 (0.16-1.47); MONOCYTES PERCENT AUTO 2 % (4-13); Mean Corpuscular HGB 35.3 pg (26.0-34.0); Mean Corpuscular HGB Conc 33.1 g/dL (31.5-36.5); Mean Corpuscular Volume 107 fL (80-100); Mean Platelet Volume 12.9 fL (9.1-12.4); NEUTROPHILS ABSOLUTE AUTO 3.18 K/mm3 (1.96-9.15); NEUTROPHILS PERCENT AUTO 92 % (41-73); RDW Coefficient Variation 15.1 % (11.7-14.2); RDW Standard Deviation 59.1 fL (35.1-46.3); Red Blood Cell Count 2.72 M/mm3 (4.30-5.90); White Blood Cell Count 3.47 K/mm3 (4.00-11.30)
[2020-12-28 08:46] LABS: Platelet Count 27 K/mm3 (150-400)
--- NOTE | 2020-12-28 08:46 | NUR ---
12/28/20 0846 DENYS PERAZA RECEIVED CALL FROM SABRINA AT LAB. PLATELET COUNT 27. DR. PICKETT NOTIFIED.
--- NOTE | 2020-12-28 10:56 | NUR ---
12/28/20 1056 Deyanira Damico USED FOR NASAL PACKING.
--- NOTE | 2020-12-28 12:03 | NUR ---
12/28/20 1203 SANTA JUAREZ 1202 O2 DECREASED TO 5L W/BLOW BY
--- NOTE | 2020-12-28 12:07 | NUR ---
12/28/20 1207 SANTA JUAREZ 1206 TRIAL OFF O2
== END 2020-12-28 14:25 | disposition home or self-care (01) ==
LOC: ORSCSDS 06:16
PROVIDERS: Anesthesiology; Otolaryngology
PROC: 8E09XBZ Computer Assisted Procedure of Head and Neck Region (ICD-10-PCS; principal; 2020-12-28 08:15)
PROC: 09BS8ZZ Excision of Right Frontal Sinus, Via Natural or Artificial Opening Endoscopic (ICD-10-PCS; principal; 2020-12-28 08:15)
PROC: 09BT8ZZ Excision of Left Frontal Sinus, Via Natural or Artificial Opening Endoscopic (ICD-10-PCS; principal; 2020-12-28 08:15)
DX: J32.4 Chronic pansinusitis (principal); E84.9 Cystic fibrosis, unspecified; Z94.2 Lung transplant status; N18.4 Chronic kidney disease, stage 4 (severe); I10 Essential (primary) hypertension; E11.9 Type 2 diabetes mellitus without complications; D61.818 Other pancytopenia; D69.6 Thrombocytopenia, unspecified; R16.2 Hepatomegaly with splenomegaly, not elsewhere classified; Z79.4 Long term (current) use of insulin; Z79.899 Other long term (current) drug therapy
CPT/HCPCS: 82947; 85025; 86900; 86901; A9270; C2625; J0171; J1100; J2250; J2370; J2405; J2704; J2765; J3010; J7030; P9037

== ENCOUNTER → 2021-01-05 | Outpatient (CLI) | payer BC ==
[~2021-01-05] MED LIST changes: +CLAR500 PO; +ERGO400 PO; +ESZO1 PO; +FURO40 PO; +POTA20LUD; +POTASSIUM CITR15 ME1 PO; +VANCOMYCIN50 MG/1 ML
== END | disposition home or self-care (01) ==
LOC: LAB SHORT 14:51 → LAB 14:51
DX: D48.5 Neoplasm of uncertain behavior of skin (principal)
CPT/HCPCS: 88305

== ENCOUNTER 2021-03-20 13:20 | Day surgery (SDC) | payer BC | END 2021-03-20 14:40 | disposition home or self-care (01) | LOC: ATC 13:20 | DX: J15.212 Pneumonia due to Methicillin resistant Staphylococcus aureus (principal); E84.9 Cystic fibrosis, unspecified; I12.9 Hypertensive chronic kidney disease with stage 1 through stage 4 chronic kidney disease, or unspecified chronic kidney disease; E11.22 Type 2 diabetes mellitus with diabetic chronic kidney disease; N18.4 Chronic kidney disease, stage 4 (severe); Z94.2 Lung transplant status; Z88.5 Allergy status to narcotic agent; Z88.8 Allergy status to other drugs, medicaments and biological substances; Z79.4 Long term (current) use of insulin; K21.9 Gastro-esophageal reflux disease without esophagitis | CPT/HCPCS: J0692 ==

== ENCOUNTER 2021-03-21 09:44 | Day surgery (SDC) | payer BC ==
[2021-03-21 10:28] LABS: Creatinine, Blood 3.28 mg/dL (0.60-1.20); Vancomycin, Trough 10.8 ug/mL (5.0-10.0)
--- NOTE | 2021-03-21 11:59 | NUR ---
PATIENTS JHONATAN REQUESTED DR MARCOS TO BE CALLED TO REQUEST FLUIDS TO BE ORDERED FOR ADMINISTRATION WITH ANTIBIOTICS. DR MARCOS CALLED AND HE AGREED TO ORDER. PATIENT IS TO RECIEVE 500CC NS DAILY WITH ANTIBIOTICS UNTIL COMPLETION OF 10 DAY COURSE
== END 2021-03-21 12:35 | disposition home or self-care (01) ==
LOC: ATC 09:44
PROVIDERS: Internal Medicine Critical Care Medicine
DX: E84.9 Cystic fibrosis, unspecified (principal); I12.9 Hypertensive chronic kidney disease with stage 1 through stage 4 chronic kidney disease, or unspecified chronic kidney disease; E11.22 Type 2 diabetes mellitus with diabetic chronic kidney disease; N18.4 Chronic kidney disease, stage 4 (severe); K21.9 Gastro-esophageal reflux disease without esophagitis; Z94.2 Lung transplant status
CPT/HCPCS: 80202; 82565; J0692; J3370; J7040; J7050

== ENCOUNTER 2021-03-22 03:23 | Day surgery (SDC) | payer BC | END 2021-03-22 11:02 | disposition home or self-care (01) | LOC: ATC 03:23 | DX: E84.9 Cystic fibrosis, unspecified (principal); Z94.2 Lung transplant status; I12.9 Hypertensive chronic kidney disease with stage 1 through stage 4 chronic kidney disease, or unspecified chronic kidney disease; E11.22 Type 2 diabetes mellitus with diabetic chronic kidney disease; N18.4 Chronic kidney disease, stage 4 (severe); K21.9 Gastro-esophageal reflux disease without esophagitis; Z79.01 Long term (current) use of anticoagulants; Z79.4 Long term (current) use of insulin; Z88.4 Allergy status to anesthetic agent; Z88.3 Allergy status to other anti-infective agents; Z88.5 Allergy status to narcotic agent; Z88.8 Allergy status to other drugs, medicaments and biological substances | CPT/HCPCS: J0692; J3370; J7040; J7050 ==

== ENCOUNTER 2021-03-23 05:19 | Day surgery (SDC) | payer BC | END 2021-03-23 17:40 | disposition home or self-care (01) | LOC: ATC 05:19 | DX: E84.9 Cystic fibrosis, unspecified (principal); E11.9 Type 2 diabetes mellitus without complications; K21.9 Gastro-esophageal reflux disease without esophagitis; I10 Essential (primary) hypertension; Z94.2 Lung transplant status; Z85.828 Personal history of other malignant neoplasm of skin; Z86.73 Personal history of transient ischemic attack (TIA), and cerebral infarction without residual deficits | CPT/HCPCS: J0692; J3370; J7040; J7050 ==

== ENCOUNTER 2021-03-25 00:19 | Day surgery (SDC) | payer BC ==
[2021-03-25 15:32] LABS: Creatinine, Blood 3.12 mg/dL (0.60-1.20); Vancomycin, Trough 21.6 ug/mL (5.0-10.0)
== END 2021-03-25 16:49 | disposition home or self-care (01) ==
LOC: ATC 00:19
PROVIDERS: Internal Medicine Critical Care Medicine
DX: E84.9 Cystic fibrosis, unspecified (principal); J15.212 Pneumonia due to Methicillin resistant Staphylococcus aureus; E11.9 Type 2 diabetes mellitus without complications; I10 Essential (primary) hypertension; K21.9 Gastro-esophageal reflux disease without esophagitis; Z94.2 Lung transplant status; Z79.4 Long term (current) use of insulin
CPT/HCPCS: 80202; 82565; 96365; 96367; J0692; J3370; J7040

== ENCOUNTER 2021-03-26 00:18 | Day surgery (SDC) | payer BC | END 2021-03-26 15:05 | disposition home or self-care (01) | LOC: ATC 00:18 | DX: T86.812 Lung transplant infection (principal); E84.9 Cystic fibrosis, unspecified; J15.212 Pneumonia due to Methicillin resistant Staphylococcus aureus; I12.9 Hypertensive chronic kidney disease with stage 1 through stage 4 chronic kidney disease, or unspecified chronic kidney disease; E11.22 Type 2 diabetes mellitus with diabetic chronic kidney disease; K21.9 Gastro-esophageal reflux disease without esophagitis; Y83.0 Surgical operation with transplant of whole organ as the cause of abnormal reaction of the patient, or of later complication, without mention of misadventure at the time of the procedure; Z79.4 Long term (current) use of insulin; Z94.2 Lung transplant status; N18.4 Chronic kidney disease, stage 4 (severe); Z88.5 Allergy status to narcotic agent; Z88.8 Allergy status to other drugs, medicaments and biological substances | CPT/HCPCS: J0692; J7040 ==

== ENCOUNTER 2021-03-27 08:40 | Day surgery (SDC) | payer BC | END 2021-03-27 10:25 | disposition home or self-care (01) | LOC: ATC 08:40 | DX: E84.9 Cystic fibrosis, unspecified (principal); K21.9 Gastro-esophageal reflux disease without esophagitis; I12.9 Hypertensive chronic kidney disease with stage 1 through stage 4 chronic kidney disease, or unspecified chronic kidney disease; N18.4 Chronic kidney disease, stage 4 (severe); E11.22 Type 2 diabetes mellitus with diabetic chronic kidney disease; Z94.2 Lung transplant status; Z79.899 Other long term (current) drug therapy; Z79.4 Long term (current) use of insulin; Z88.5 Allergy status to narcotic agent; Z88.8 Allergy status to other drugs, medicaments and biological substances | CPT/HCPCS: 96365; 96367; J0692; J3370; J7040 ==

== ENCOUNTER 2021-03-28 09:35 | Day surgery (SDC) | payer BC | END 2021-03-28 11:00 | disposition home or self-care (01) | LOC: ATC 09:35 | DX: E84.9 Cystic fibrosis, unspecified (principal); Z94.2 Lung transplant status; I12.9 Hypertensive chronic kidney disease with stage 1 through stage 4 chronic kidney disease, or unspecified chronic kidney disease; E11.22 Type 2 diabetes mellitus with diabetic chronic kidney disease; N18.4 Chronic kidney disease, stage 4 (severe); Z79.01 Long term (current) use of anticoagulants; Z88.4 Allergy status to anesthetic agent; Z88.5 Allergy status to narcotic agent; Z88.8 Allergy status to other drugs, medicaments and biological substances | CPT/HCPCS: 96365; J0692; J7040 ==

== ENCOUNTER 2021-05-10 23:05 | Inpatient (IN) | payer BC ==
[~2021-05-10] VITALS: Ht 180.3 cm; Wt 67.4 kg
[~2021-05-10 23:05] MED LIST changes: -POTA20LUD
[2021-05-10 23:45] LABS: Bicarbonate Venous 19.9 mmol/L (24.0-30.0); PCO2 Venous 46.7 mmHg (38-42); PO2 Venous 23.1 mmHg (38-42); pH Blood Venous 7.29 (7.34-7.37)
[2021-05-10 23:52] LABS: BASOPHILS ABSOLUTE AUTO 0.02 K/mm3 (0.00-0.23); BASOPHILS PERCENT AUTO 0 % (0-2); EOSINOPHILS ABSOLUTE AUTO 0.13 K/mm3 (0.00-0.68); EOSINOPHILS PERCENT AUTO 1 % (0-6); Hematocrit 34.4 % (37.0-53.0); Hemoglobin 11.2 g/dL (13.5-17.5); IMMATURE GRAN ABSOLUTE AUTO 0.26 K/mm3 (0.00-0.10); IMMATURE GRAN PERCENT AUTO 1 % (0-1); LYMPHOCYTES ABSOLUTE AUTO 0.53 K/mm3 (0.84-5.20); LYMPHOCYTES PERCENT AUTO 3 % (21-46); MONOCYTES ABSOLUTE AUTO 0.81 K/mm3 (0.16-1.47); MONOCYTES PERCENT AUTO 5 % (4-13); Mean Corpuscular HGB 34.4 pg (26.0-34.0); Mean Corpuscular HGB Conc 32.6 g/dL (31.5-36.5); Mean Corpuscular Volume 106 fL (80-100); Mean Platelet Volume 12.3 fL (9.1-12.4); NEUTROPHILS ABSOLUTE AUTO 16.22 K/mm3 (1.96-9.15); NEUTROPHILS PERCENT AUTO 90 % (41-73); RDW Coefficient Variation 16.2 % (11.7-14.2); RDW Standard Deviation 62.5 fL (35.1-46.3); Red Blood Cell Count 3.26 M/mm3 (4.30-5.90); White Blood Cell Count 17.97 K/mm3 (4.00-11.30)
[2021-05-10] MEDS ORDERED: OLAN10 PO (23:55)
[2021-05-10] MEDS ORDERED: FLUO10 PO (23:57)
[2021-05-10 23:58] LABS: Platelet Count 38 K/mm3 (150-400)
[2021-05-11] MEDS ORDERED: TRIKAFTA 100/51 EACH PO
[2021-05-11] MEDS ORDERED: NADO40 PO (00:05)
[2021-05-11 00:08] LABS: Albumin, Blood 2.7 g/dL (3.4-5.0); Albumin/Globulin Ratio 0.6 (0.8-1.8); Bilirubin, Total 0.7 mg/dL (0.1-1.0); Bun/Creatinine Ratio 20.8 (12.0-20.0); Calcium, Blood 7.4 mg/dL (8.5-10.1); Creatinine, Blood 3.27 mg/dL (0.60-1.20); Globulin, Blood 4.7 g/dL (2.2-4.0); Potassium, Blood 4.1 mmol/L (3.5-5.5); Total Protein, Blood 7.4 g/dL (6.4-8.2)
[2021-05-11 00:29] LABS: Influenza A, PCR NEGATIVE (NEGATIVE); Influenza B, PCR NEGATIVE (NEGATIVE); Resp Syncytial Virus, PCR NEGATIVE (NEGATIVE); SARS-Cov-2 (COVID-19) PCR, MMC NEGATIVE (NEGATIVE)
[2021-05-11 00:42] LABS: International Normalized Ratio 1.15
[2021-05-11] MEDS ORDERED: VARDENAFIL HCL20 MG PO (04:53)
[2021-05-11 06:25] LABS: BASOPHILS ABSOLUTE AUTO 0.03 K/mm3 (0.00-0.23); BASOPHILS PERCENT AUTO 0 % (0-2); EOSINOPHILS ABSOLUTE AUTO 0.23 K/mm3 (0.00-0.68); EOSINOPHILS PERCENT AUTO 1 % (0-6); Hemoglobin 10.5 g/dL (13.5-17.5); IMMATURE GRAN ABSOLUTE AUTO 0.33 K/mm3 (0.00-0.10); IMMATURE GRAN PERCENT AUTO 2 % (0-1); LYMPHOCYTES ABSOLUTE AUTO 0.53 K/mm3 (0.84-5.20); LYMPHOCYTES PERCENT AUTO 3 % (21-46); MONOCYTES ABSOLUTE AUTO 0.64 K/mm3 (0.16-1.47); MONOCYTES PERCENT AUTO 4 % (4-13); Mean Corpuscular HGB 34.8 pg (26.0-34.0); Mean Corpuscular HGB Conc 32.8 g/dL (31.5-36.5); Mean Corpuscular Volume 106 fL (80-100); Mean Platelet Volume 11.8 fL (9.1-12.4); NEUTROPHILS ABSOLUTE AUTO 14.35 K/mm3 (1.96-9.15); NEUTROPHILS PERCENT AUTO 89 % (41-73); RDW Coefficient Variation 16.6 % (11.7-14.2); RDW Standard Deviation 63.9 fL (35.1-46.3); Red Blood Cell Count 3.02 M/mm3 (4.30-5.90); White Blood Cell Count 16.11 K/mm3 (4.00-11.30)
[2021-05-11 06:45] LABS: Bun/Creatinine Ratio 21.2 (12.0-20.0); Calcium, Blood 7.2 mg/dL (8.5-10.1); Creatinine, Blood 3.12 mg/dL (0.60-1.20); Potassium, Blood 4.1 mmol/L (3.5-5.5)
[2021-05-11 06:57] LABS: Platelet Count 36 K/mm3 (150-400)
--- NOTE | 2021-05-11 07:24 | NUR ---
SHIFT SUMMARY: PATIENT ADMITTED THIS MORNING. AOX3, FORGETFUL BUT ABLE TO ANSWER QUESTIONS. STATES HE CAN BE A HANDFUL WHEN HE IS ILL. FOLLOWS DIRECTIONS. HISTORY OF CVA, NO DEFICITS. DENIES ANY NUMBNESS OR TINGLING. 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 WEAK TO BLE. CURRENTLY ON BIPAP WITH SETTINGS IPAP-10; EPAP-6; RATE OF 10, O2 INCREASED FROM 25 TO 40%. LUNG SOUNDS ARE VERY MOIST, COARSE CRACKLES T/O. OCCATIONAL COUGH, TACHYPNEA, SOME RETRACTIONS. GETS VERY RESTLESS, ANXIOUS, TRYING TO TAKE OFF HIS MASK SEVERAL TIMES. HAD TO CONTINUE TO REMIND HIM TO KEEP MASK ON. DESATS QUICK WHEN MASK IS OFF. HR SINUS WITH OCCATIONAL PVC'S, BUT STRIPS ARE DIFFICULT THE PATIENT IS RESTLESS. BILATERAL ANKLE EDEMA 2-3. NO URINE OUTPUT AT THIS TIME, INFORMED DAYSHIFT. SKIN IS DRY, FLACKY, BRUISING TO BUE, SMALL SCABS TO LEFT PARKS. FRAGILE. DID HAVE BM, STATES CAN BE INCONTIENT AT TIMES. NEW IV PLACED IN LEFT UPPER ARM. LABS: PLT CRITICAL LOW-36; WBC-16.11; GFR-20; CREATINE 3.12. MED REC COMPLETED, NEEDS TO BRING IN SOME OF THE HOME MEDS. REPORT GIVEN TO DAYSHIFT.
--- NOTE | 2021-05-11 07:45 | NUR ---
ASSUMED CARE THIS AM PT. CURRENTLY ON BIPAP 01/06 50%. ATTEMPTED PT ON HIGH FLOW NC ON 55L, 50%. PT. RR IN THE MID 30S, ONLY ABLE TO ANSWER IN ONE TO TWO WORD ANSWERS THEN REQUESTED TO GO BACK ON MASK. PT LS VERY COARSE. THIS RN IS CONCERNED OVER PT WORK OF BREATHING, PT. PLACED BACK ON BIPAP. DR. ENGLAND CALLED. PT. MEDS SCHEDULED ORAL. PT UNSAFE TO TAKE ORAL MEDICAION AT THIS TIME DUE TO HIGH ASPIRATION RISK. PER DR. ENGLAND HOLD PO MEDS AT THIS TIME AND SHE WILL BE DOWN TO EVAL. PT. FORGETFUL AND PULLING AT BIPAP MASK. REMINDED FREQUENTLY TO NOT PULL ON MASK, PT STATES "I CANT BREATHE". CRITICAL CARE CONSULT OBTAINED.
--- NOTE | 2021-05-11 09:00 | NUR ---
BOTH DR. ENGLAND AND DR. PRAKASH WORKING WITH PHARMACIST TO TRANSITION MEDS TO IV DUE TO PT UNSAFE TO TAKE PO MEDS AT THIS TIME.
--- NOTE | 2021-05-11 10:56 | NUR ---
PT. CONTINUES TO PULL AT MASK AT TIMES, AND REACHING FOR THINGS IN THE BED THAT ARE NOT THERE. SPEECH DIFFICULT TO UNDERSTAND AT TIMES. PT. PLACED ON 15L OXYMIZER FOR ORAL CARE BREAK. PT. VERY SOB, RR IN THE MID 30S AND USE OF ACCESSORY MUSCLES FOR BREATHING. ATTEMPTED TO ASSIST PT TO VOID, UNABLE TO VOID AT THIS TIME. BLADDER SCAN COMPLETED WITH 287ML. CALL TO DR. ENGLAND TO UPDATE.
--- NOTE | 2021-05-11 11:33 | NUR ---
MONTELONGO CATHETER PLACED, URINE SPECIMEN OBTAINED. GEL PAD PLACED TO BRIDGE OF NOSE UNDER BIPAP.
[2021-05-11 11:36] LABS: Source, Urine Foley catheter
[2021-05-11 11:40] LABS: Bilirubin, Urine Neg (Neg); Blood, Urine 1+ (Neg); Glucose Qualitative, Urine 2+ (Neg); Ketones, Urine Neg (Neg); Leukocyte Esterase, Urine Neg (Neg); Nitrite, Urine Neg (Neg); Protein, Urine 2+ (Neg); Urobilinogen, Urine NORM (Normal)
[2021-05-11 11:50] LABS: Color, Urine Pale Yellow (P-Yellow)
[2021-05-11 11:51] LABS: Amorphous Light (0-Heavy); Appearance, Urine Clear (Clear); Bacteria Rare /hpf; Squamous Epithelial Cells Few /hpf (Few); White Blood Cells, Urine Rare /hpf (0-5)
--- NOTE | 2021-05-11 12:00 | NUR ---
PT PULLING AT LINES, CORDS AND MASK CONTINUALLY PT PULLED OUT IV AND WAS PULLING AT MONTELONGO CATHETER. PLACED IN BILAT WRIST RESTRAINTS AT THIS TIME. PRECEDEX GTT TITRATED UP TO 0.7/MCG/KG/HR. PT. PREPARED FOR CT.
--- NOTE | 2021-05-11 13:33 | NUR ---
UPDATE PULM AT [facility] AND CONNECTED WITH DR ENGLAND AND DR. PRAKASH. VOICED CONCERNS OVER INABILITY TO ADMIN PO MEDICATIONS, PT RR REMAINS IN THE 30S AND IS LABORED WITH REMOVAL OF BIPAP MASK. PT UPDATED WELL.
--- NOTE | 2021-05-11 14:22 | NUR ---
ACCEPTING BED AND PHYSICIAN AT [facility]. BLOOD CULTURES DRAWN AT THIS TIME. PT. REMAINS ON PRECEDEX GTT TITRATED DOWN TO 0.2 MCG/KG/HR. REACH CALLED, PT. PREPARED FOR TRANSFER.
--- NOTE | 2021-05-11 15:00 | NUR ---
REACH TEAM AT BEDSIDE FOR PREPARATION TO TRANSFER PT. RESTRAINTS TO STAY IN PLACE FOR TRANSFER, AND PT TO REMAIN ON PRECEDEX GTT FOR TRANSFER. TO BWEDSIDE.
--- NOTE | 2021-05-11 15:52 | NUR ---
PT TAKEN VIA REACH TO [facility]. REPORT CALLED TO JESUS MILLS. PT. VSS UPON TRANSFER. ALL BELONGINGS TAKEN BY STEPHEN LANG. , HOME MEDS RETURNED TO STEPH[facility] MILLS UPON PT DEPARTURE.
--- NOTE | 2021-05-11 15:54 | NUR ---
Patient is in process of being transported to [facility]. I wait with spouse, Zohra and provide a calming presence, a shoulder to cry on, prayer with pt and spouse and emotional support. Zohra responds well and shows evidence of being comforted. She voices appreciation for the support.
== END 2021-05-11 13:30 | disposition short-term general hospital (02) | DRG 871 ==
LOC: ER 23:05 → ICUW 05-11 00:42 → ERHOLD 05-11 00:42 → ICUW 05-11 02:35
PROVIDERS: Emergency Medicine; Internal Medicine Critical Care Medicine; Physician Assistant; Student in an Organized Health Care Education/Training Program; ADMIT Internal Medicine
PROC: 5A09357 Assistance with Respiratory Ventilation, Less than 24 Consecutive Hours, Continuous Positive Airway Pressure (ICD-10-PCS; principal; 2021-05-11)
DX: A41.9 Sepsis, unspecified organism (principal); J18.9 Pneumonia, unspecified organism; J96.01 Acute respiratory failure with hypoxia; J96.02 Acute respiratory failure with hypercapnia; E84.9 Cystic fibrosis, unspecified; Z66 Do not resuscitate; N18.4 Chronic kidney disease, stage 4 (severe); K76.6 Portal hypertension; D84.821 Immunodeficiency due to drugs; T86.818 Other complications of lung transplant; Z20.822 Contact with and (suspected) exposure to COVID-19; Z78.1 Physical restraint status; R65.20 Severe sepsis without septic shock; F41.9 Anxiety disorder, unspecified; D69.6 Thrombocytopenia, unspecified; F32.A Depression, unspecified; E11.22 Type 2 diabetes mellitus with diabetic chronic kidney disease; Z79.4 Long term (current) use of insulin; Z79.01 Long term (current) use of anticoagulants; Z79.52 Long term (current) use of systemic steroids; Z79.899 Other long term (current) drug therapy; Z86.14 Personal history of Methicillin resistant Staphylococcus aureus infection; Z86.73 Personal history of transient ischemic attack (TIA), and cerebral infarction without residual deficits; Z88.5 Allergy status to narcotic agent; Z88.8 Allergy status to other drugs, medicaments and biological substances; Z98.890 Other specified postprocedural states; Y83.8 Other surgical procedures as the cause of abnormal reaction of the patient, or of later complication, without mention of misadventure at the time of the procedure
CPT/HCPCS: 0241U; 36415; 51702; 71045; 71250; 80048; 80053; 81001; 82803; 82947; 83605; 83880; 84145; 84484; 85025; 85610; 85730; 87040; 87086; 94640; 94660; 94667; 96374; 96375; 99285-25; A9270; J0133; J0456; J0692; J0696; J0713; J1100; J1815; J1940; J3370; J7030; J7050; J7060; J7512